=== PATIENT | female | born 1945 | race Caucasian/White ===

== ENCOUNTER → 2018-02-02 | Outpatient (CLI) | payer MEDICARE ==
[~2018-02-02] MED LIST: ACYC800 PO; ALBU90OI INH; ALBU90OI61 INH; ASCO500 PO; ASPI81EC PO; ATEN25 PO; BENADRYL25 MG PO; CHOL10002 PO; CYCL10 PO; DEXL60CA3 PO; DICL75ER PO; ENOX40I SC; FLUO20 PO; FLUSAL2505 INH; FURO20; HYDR1TAB94 PO; IBUPROFEN PM S1 EACH PO; ISOMON30 PO; LEVO750 PO; LOVA40; LOVA40 PO; MAGNESIUM CITRATE PO; MAGOXI400 PO; MELA3 PO; MULVITMIND PO; MUPI2TO TOP; Mobic15 MG PO; Mucinex600 MG PO; Norco 5-325 Ta1 EACH PO; OXYACE5T PO; Percocet 5-3251 EACH PO; Percocet 7.5-31 EACH PO; Prednisone20 MG PO; Prozac20 MG; Prozac20 MG PO; Prozac40 MG PO; QVAR7.3 G1 IH; QVAR7.3 G1 INH; SULTRIDS PO; Sucralfate1 GM PO; Ultram50 MG PO; VITAMIN D34000 UNIT PO; Verotin-Gr Cap1 EACH PO; Vitamin C100 M1 PO
[2018-02-04 16:05] LABS: Adenovirus F 40/41 Not Detected (NOT DETECT); Astrovirus Not Detected (NOT DETECT); Campylobacter Sp Not Detected (NOT DETECT); Cryptosporidium Not Detected (NOT DETECT); Cyclospora Cayetanensis Not Detected (NOT DETECT); E. Coli O157 Not Detected (NOT DETECT); Entamoeba Histolytica Not Detected (NOT DETECT); Enteroaggregative E. coli-EAEC Not Detected (NOT DETECT); Enteropathogenic E. coli-EPEC Not Detected (NOT DETECT); Enterotoxigenic E. coli-ETEC Not Detected (NOT DETECT); Giardia Lamblia Not Detected (NOT DETECT); Norovirus GI/GII Not Detected (NOT DETECT); Plesiomonas Shigelloides Not Detected (NOT DETECT); Rotavirus A Not Detected (NOT DETECT); Salmonella Sp Not Detected (NOT DETECT); Sapovirus Not Detected (NOT DETECT); Shiga Toxin-prod E. coli-STEC Not Detected (NOT DETECT); Shigella/Enteroin E. coli-EIEC Not Detected (NOT DETECT); Vibrio Cholerae Not Detected (NOT DETECT); Vibrio Sp Not Detected (NOT DETECT); Yersinia Enterocolitica Not Detected (NOT DETECT)
[2018-02-05 14:30] LABS: Stool Occult Bld Immuno 1 Negative (NEGATIVE); Stool Occult Bld Immuno 2 Negative (NEGATIVE)
== END ==
LOC: OLS 16:03 → LAB SHORT 16:03
PROVIDERS: Internal Medicine Gastroenterology
DX: K57.30 Diverticulosis of large intestine without perforation or abscess without bleeding (principal); R10.84 Generalized abdominal pain; R19.7 Diarrhea, unspecified
CPT/HCPCS: 82274; 87507

== ENCOUNTER 2018-04-13 14:43 | Inpatient (IN) | payer MEDICARE ==
[~2018-04-13] VITALS: Ht 167.6 cm; Wt 66.7 kg
[2018-04-13] MEDS ORDERED: PRED20 PO (15:13)
[2018-04-13 15:18] LABS: BASOPHILS ABSOLUTE AUTO 0.03 K/mm3 (0.00-0.23); BASOPHILS PERCENT AUTO 0 % (0-2); EOSINOPHILS ABSOLUTE AUTO 0.13 K/mm3 (0.00-0.68); EOSINOPHILS PERCENT AUTO 1 % (0-6); Hematocrit 38.5 % (33.0-51.0); Hemoglobin 12.6 g/dL (11.5-16.0); IMMATURE GRAN ABSOLUTE AUTO 0.07 K/mm3 (0.00-0.10); IMMATURE GRAN PERCENT AUTO 1 % (0-1); LYMPHOCYTES ABSOLUTE AUTO 1.68 K/mm3 (0.84-5.20); LYMPHOCYTES PERCENT AUTO 16 % (21-46); MONOCYTES ABSOLUTE AUTO 0.77 K/mm3 (0.16-1.47); MONOCYTES PERCENT AUTO 7 % (4-13); Mean Corpuscular HGB 33.2 pg (26.0-34.0); Mean Corpuscular HGB Conc 32.7 g/dL (31.5-36.5); Mean Corpuscular Volume 101 fL (80-100); Mean Platelet Volume 8.8 fL (9.1-12.4); NEUTROPHILS ABSOLUTE AUTO 8.14 K/mm3 (1.96-9.15); NEUTROPHILS PERCENT AUTO 75 % (41-73); Platelet Count 380 K/mm3 (150-400); RDW Standard Deviation 48.4 fL (35.1-46.3); White Blood Cell Count 10.82 K/mm3 (4.00-11.30)
[2018-04-13 15:33] LABS: Alanine Aminotransfer (ALT/SGP 24 U/L (12-78); Albumin, Blood 3.7 g/dL (3.4-5.0); Alk Phos 108 U/L (50-136); Anion Gap 12 mmol/L (6-16); Aspartate Aminotrans (AST/SGOT 19 U/L (12-37); Bilirubin, Total 0.3 mg/dL (0.1-1.0); Blood Urea Nitrogen 29 mg/dL (8-24); Bun/Creatinine Ratio 23.2 (12.0-20.0); CO2, Blood 21 mmol/L (21-32); Calcium, Blood 8.3 mg/dL (8.5-10.1); Chloride, Blood 104 mmol/L (98-108); Creatinine, Blood 1.25 mg/dL (0.40-1.00); Globulin, Blood 3.6 g/dL (2.2-4.0); Glomerular Filtration Rate 45 (60-); Glucose, Blood 126 mg/dL (70-99); Potassium, Blood 5.1 mmol/L (3.5-5.5); Sodium, Blood 137 mmol/L (136-145); Total Protein, Blood 7.3 g/dL (6.4-8.2); Troponin I <0.015 ng/mL (0.000-0.040)
[2018-04-13] MEDS ORDERED: Mobic7.5 MG PO (21:16)
[2018-04-14 07:42] LABS: BASOPHILS PERCENT AUTO 0 % (0-2); EOSINOPHILS PERCENT AUTO 0 % (0-6); Hematocrit 33.5 % (33.0-51.0); Hemoglobin 11.3 g/dL (11.5-16.0); IMMATURE GRAN ABSOLUTE AUTO 0.03 K/mm3 (0.00-0.10); IMMATURE GRAN PERCENT AUTO 1 % (0-1); LYMPHOCYTES ABSOLUTE AUTO 0.47 K/mm3 (0.84-5.20); LYMPHOCYTES PERCENT AUTO 7 % (21-46); MONOCYTES ABSOLUTE AUTO 0.07 K/mm3 (0.16-1.47); MONOCYTES PERCENT AUTO 1 % (4-13); Mean Corpuscular HGB 34.2 pg (26.0-34.0); Mean Corpuscular HGB Conc 33.7 g/dL (31.5-36.5); Mean Corpuscular Volume 102 fL (80-100); Mean Platelet Volume 8.7 fL (9.1-12.4); NEUTROPHILS PERCENT AUTO 91 % (41-73); Platelet Count 340 K/mm3 (150-400); RDW Coefficient Variation 13.2 % (11.7-14.2); White Blood Cell Count 6.57 K/mm3 (4.00-11.30)
[2018-04-14 07:58] LABS: Bun/Creatinine Ratio 28.7 (12.0-20.0); Calcium, Blood 8.1 mg/dL (8.5-10.1); Creatinine, Blood 1.01 mg/dL (0.40-1.00); Potassium, Blood 5.4 mmol/L (3.5-5.5)
[2018-04-15 06:10] LABS: Bun/Creatinine Ratio 29.3 (12.0-20.0); Calcium, Blood 8.1 mg/dL (8.5-10.1); Creatinine, Blood 1.16 mg/dL (0.40-1.00)
[2018-04-17 04:54] LABS: BASOPHILS ABSOLUTE AUTO 0.01 K/mm3 (0.00-0.23); BASOPHILS PERCENT AUTO 0 % (0-2); EOSINOPHILS PERCENT AUTO 0 % (0-6); Hematocrit 33.2 % (33.0-51.0); Hemoglobin 10.9 g/dL (11.5-16.0); IMMATURE GRAN ABSOLUTE AUTO 0.12 K/mm3 (0.00-0.10); IMMATURE GRAN PERCENT AUTO 1 % (0-1); LYMPHOCYTES ABSOLUTE AUTO 0.51 K/mm3 (0.84-5.20); LYMPHOCYTES PERCENT AUTO 5 % (21-46); MONOCYTES ABSOLUTE AUTO 0.46 K/mm3 (0.16-1.47); MONOCYTES PERCENT AUTO 4 % (4-13); Mean Corpuscular HGB Conc 32.8 g/dL (31.5-36.5); Mean Corpuscular Volume 101 fL (80-100); NEUTROPHILS ABSOLUTE AUTO 9.55 K/mm3 (1.96-9.15); NEUTROPHILS PERCENT AUTO 90 % (41-73); Platelet Count 375 K/mm3 (150-400); RDW Coefficient Variation 13.1 % (11.7-14.2); RDW Standard Deviation 47.9 fL (35.1-46.3); White Blood Cell Count 10.65 K/mm3 (4.00-11.30)
[2018-04-17 05:19] LABS: Albumin, Blood 3.3 g/dL (3.4-5.0); Anion Gap 8 mmol/L (6-16); Blood Urea Nitrogen 38 mg/dL (8-24); Bun/Creatinine Ratio 35.5 (12.0-20.0); CO2, Blood 24 mmol/L (21-32); Calcium, Blood 8.1 mg/dL (8.5-10.1); Chloride, Blood 105 mmol/L (98-108); Creatinine, Blood 1.07 mg/dL (0.40-1.00); Glomerular Filtration Rate 53 (60-); Glucose, Blood 118 mg/dL (70-99); Phosphorus, Blood 4.2 mg/dL (2.5-4.9); Potassium, Blood 4.9 mmol/L (3.5-5.5); Sodium, Blood 137 mmol/L (136-145)
[2018-04-17 11:04] LABS: Source, Urine Voided
[2018-04-17 11:11] LABS: Bilirubin, Urine Neg (Neg); Blood, Urine Neg (Neg); Glucose Qualitative, Urine Neg (Neg); Ketones, Urine Neg (Neg); Leukocyte Esterase, Urine Neg (Neg); Nitrite, Urine Neg (Neg); Protein, Urine 1+ (Neg); Specific Gravity, Urine 1.015 (1.003-1.022); Urobilinogen, Urine NORM (Normal)
[2018-04-17 11:19] LABS: Appearance, Urine Clear (Clear); Color, Urine Yellow (P-Yellow)
[2018-04-18] MEDS ORDERED: Calcium Carbon500 M1 PO (09:10)
[2018-04-18] MEDS ORDERED: DICL75ER PO (09:10)
[2018-04-18] MEDS ORDERED: COLACE 2-IN-11 EACH PO (09:10)
[2018-04-18] MEDS ORDERED: HYDR1TAB94 PO (09:11)
[2018-04-18] MEDS ORDERED: Flonase 0.05% N16 GM (09:11)
[2018-04-18] MEDS ORDERED: Milk Of Ma400 MG/5 M PO (09:12)
[2018-04-18] MEDS ORDERED: ALBU3IS INH (09:13)
[2018-04-18] MEDS ORDERED: DULERA 200 MCG/13 GM INH (09:13)
[2018-04-18] MEDS ORDERED: Senna8.6 MG PO (09:14)
[2018-04-18] MEDS ORDERED: PANT40 PO (09:14)
[2018-04-18] MEDS ORDERED: MELA3 PO (09:14)
[2018-04-18] MEDS ORDERED: DOCU100 PO (09:16)
== END 2018-04-18 10:16 | disposition home or self-care (01) | DRG 190 ==
LOC: ER 14:43 → ICUW 19:20 → ICUE 19:20 → MEDS 04-14 14:25 → ENPENDDIS 04-18 08:27 → MEDS 04-18 10:16
PROVIDERS: Emergency Medicine; Internal Medicine
DX: J44.1 Chronic obstructive pulmonary disease with (acute) exacerbation (principal); N17.0 Acute kidney failure with tubular necrosis; J96.01 Acute respiratory failure with hypoxia; E86.0 Dehydration; R09.1 Pleurisy; I25.10 Atherosclerotic heart disease of native coronary artery without angina pectoris; K21.9 Gastro-esophageal reflux disease without esophagitis; E78.5 Hyperlipidemia, unspecified; E78.00 Pure hypercholesterolemia, unspecified; K59.00 Constipation, unspecified; R50.9 Fever, unspecified; R53.1 Weakness; F32.9 Major depressive disorder, single episode, unspecified; F17.210 Nicotine dependence, cigarettes, uncomplicated; Z91.81 History of falling; Z95.1 Presence of aortocoronary bypass graft; Z79.52 Long term (current) use of systemic steroids; Z79.899 Other long term (current) drug therapy
CPT/HCPCS: 36415; 71046; 80048; 80053; 80069; 82947; 84484; 85025; 93005; 93010; 94640; 94644; 94760; 94761; 96361; 96365; 96375; 97116; 97162; 97530; 99285; G8978; G8979; J0456; J1650; J2930; J3010; J7050; J7120

== ENCOUNTER 2019-03-09 10:56 | Emergency (ER) | payer MEDICARE ==
[~2019-03-09] VITALS: Ht 167.6 cm; Wt 63.5 kg
[~2019-03-09 10:56] MED LIST changes: +ACETAMINOPHEN500 MG PO; +ALBU3IS INH; +COLACE 2-IN-11 EACH PO; +Calcium Carbon500 M1 PO; +DOCU100 PO; +DULERA 200 MCG/13 GM INH; +Flonase 0.05% N16 GM; +Fluocinonide15 GM TOP; +MAGNESIUM OXID400 MG PO; +Milk Of Ma400 MG/5 M PO; +PANT40 PO; +PRED20 PO; +Prednisone50 MG PO; +Senna8.6 MG PO; +Zithromax250 MG PO
[2019-03-09 12:59] LABS: BASOPHILS ABSOLUTE AUTO 0.05 K/mm3 (0.00-0.23); BASOPHILS PERCENT AUTO 1 % (0-2); EOSINOPHILS ABSOLUTE AUTO 0.24 K/mm3 (0.00-0.68); EOSINOPHILS PERCENT AUTO 4 % (0-6); Hematocrit 41.3 % (33.0-51.0); Hemoglobin 13.3 g/dL (11.5-16.0); IMMATURE GRAN ABSOLUTE AUTO 0.02 K/mm3 (0.00-0.10); IMMATURE GRAN PERCENT AUTO 0 % (0-1); LYMPHOCYTES ABSOLUTE AUTO 1.02 K/mm3 (0.84-5.20); LYMPHOCYTES PERCENT AUTO 19 % (21-46); MONOCYTES ABSOLUTE AUTO 0.57 K/mm3 (0.16-1.47); MONOCYTES PERCENT AUTO 10 % (4-13); Mean Corpuscular HGB 33.4 pg (26.0-34.0); Mean Corpuscular HGB Conc 32.2 g/dL (31.5-36.5); Mean Corpuscular Volume 104 fL (80-100); Mean Platelet Volume 9.8 fL (9.1-12.4); NEUTROPHILS ABSOLUTE AUTO 3.61 K/mm3 (1.96-9.15); NEUTROPHILS PERCENT AUTO 66 % (41-73); Platelet Count 295 K/mm3 (150-400); RDW Coefficient Variation 13.3 % (11.7-14.2); RDW Standard Deviation 51.6 fL (35.1-46.3); Red Blood Cell Count 3.98 M/mm3 (3.80-5.20); White Blood Cell Count 5.51 K/mm3 (4.00-11.30)
[2019-03-09 13:12] LABS: Alanine Aminotransfer (ALT/SGP 23 U/L (12-78); Albumin, Blood 3.5 g/dL (3.4-5.0); Albumin/Globulin Ratio 1.1 (0.8-1.8); Alk Phos 127 U/L (50-136); Anion Gap 7 mmol/L (6-16); Aspartate Aminotrans (AST/SGOT 20 U/L (12-37); Bilirubin, Total 0.4 mg/dL (0.1-1.0); Blood Urea Nitrogen 22 mg/dL (8-24); Bun/Creatinine Ratio 32.1 (12.0-20.0); CO2, Blood 21 mmol/L (21-32); Chloride, Blood 111 mmol/L (98-108); Creatinine, Blood 0.69 mg/dL (0.40-1.00); Globulin, Blood 3.2 g/dL (2.2-4.0); Glomerular Filtration Rate >60 (60-); Glucose, Blood 81 mg/dL (70-99); Sodium, Blood 139 mmol/L (136-145); Total Protein, Blood 6.7 g/dL (6.4-8.2)
[2019-03-09] MEDS ORDERED: Prednisone20 MG PO (17:22)
== END 2019-03-09 17:50 | disposition home or self-care (01) ==
LOC: ER 10:56
PROVIDERS: Physician Assistant
DX: J44.1 Chronic obstructive pulmonary disease with (acute) exacerbation (principal); M19.90 Unspecified osteoarthritis, unspecified site; F17.210 Nicotine dependence, cigarettes, uncomplicated; Z79.899 Other long term (current) drug therapy; Z88.2 Allergy status to sulfonamides
CPT/HCPCS: 36415; 71046; 80053; 83880; 84484; 85025; 93005; 93010; 94640; 96374; 99285-25; J2930

== ENCOUNTER 2019-03-13 10:51 | Observation (INO) | payer MEDICARE ==
[~2019-03-13] VITALS: Ht 167.6 cm; Wt 64.4 kg
[2019-03-13 12:06] LABS: BASOPHILS ABSOLUTE AUTO 0.01 K/mm3 (0.00-0.23); BASOPHILS PERCENT AUTO 0 % (0-2); EOSINOPHILS ABSOLUTE AUTO 0.03 K/mm3 (0.00-0.68); EOSINOPHILS PERCENT AUTO 0 % (0-6); Hematocrit 37.6 % (33.0-51.0); Hemoglobin 12.5 g/dL (11.5-16.0); IMMATURE GRAN ABSOLUTE AUTO 0.04 K/mm3 (0.00-0.10); IMMATURE GRAN PERCENT AUTO 1 % (0-1); LYMPHOCYTES ABSOLUTE AUTO 2.03 K/mm3 (0.84-5.20); LYMPHOCYTES PERCENT AUTO 25 % (21-46); MONOCYTES ABSOLUTE AUTO 0.81 K/mm3 (0.16-1.47); MONOCYTES PERCENT AUTO 10 % (4-13); Mean Corpuscular HGB 33.1 pg (26.0-34.0); Mean Corpuscular HGB Conc 33.2 g/dL (31.5-36.5); Mean Platelet Volume 9.6 fL (9.1-12.4); NEUTROPHILS ABSOLUTE AUTO 5.37 K/mm3 (1.96-9.15); NEUTROPHILS PERCENT AUTO 65 % (41-73); Platelet Count 275 K/mm3 (150-400); RDW Coefficient Variation 13.2 % (11.7-14.2); RDW Standard Deviation 47.8 fL (35.1-46.3); Red Blood Cell Count 3.78 M/mm3 (3.80-5.20); White Blood Cell Count 8.29 K/mm3 (4.00-11.30)
[2019-03-13 12:13] LABS: Alanine Aminotransfer (ALT/SGP 27 U/L (12-78); Albumin, Blood 3.4 g/dL (3.4-5.0); Albumin/Globulin Ratio 1.2 (0.8-1.8); Alk Phos 112 U/L (50-136); Anion Gap 8 mmol/L (6-16); Aspartate Aminotrans (AST/SGOT 20 U/L (12-37); Bilirubin, Total 0.4 mg/dL (0.1-1.0); Blood Urea Nitrogen 22 mg/dL (8-24); Bun/Creatinine Ratio 29.7 (12.0-20.0); CO2, Blood 23 mmol/L (21-32); Calcium, Blood 8.1 mg/dL (8.5-10.1); Chloride, Blood 109 mmol/L (98-108); Creatinine, Blood 0.74 mg/dL (0.40-1.00); Globulin, Blood 2.8 g/dL (2.2-4.0); Glomerular Filtration Rate >60 (60-); Glucose, Blood 93 mg/dL (70-99); Potassium, Blood 4.4 mmol/L (3.5-5.5); Sodium, Blood 140 mmol/L (136-145); Total Protein, Blood 6.2 g/dL (6.4-8.2); Troponin I <0.015 ng/mL (0.000-0.040)
[2019-03-13 12:15] LABS: Mean Corpuscular Volume 100 fL (80-100)
[2019-03-13] MEDS ORDERED: ALBU3IS NEB (19:35)
[2019-03-13] MEDS ORDERED: DULERA 200 MCG/13 GM INH (19:36)
[2019-03-13] MEDS ORDERED: ACYC800 PO (19:37)
[2019-03-13] MEDS ORDERED: MELATONIN5 M1 PO (19:38)
[2019-03-13] MEDS ORDERED: PRENATAL TABLE1 EAC1 PO (19:41)
[2019-03-13] MEDS ORDERED: IBUPROFEN PM S1 EACH PO (19:41)
[2019-03-13] MEDS ORDERED: DIPH50 PO (19:42)
[2019-03-13 21:53] LABS: CPK Creatine Kinase 77 U/L (26-193); Troponin I <0.015 ng/mL (0.000-0.040)
--- NOTE | 2019-03-13 23:00 | NUR ---
2300 ADMIT: PT ARRIVES TO ROOM 336 VIA GOURNEY FROM ER AND TRANSFERS SELF TO BED WITH SBA; APPEARS STEADY ON FEET. PT ON 2L O2 VIA NC AND APPEARS VISIBILY SOB WITH TIGHT LUNG SOUNDS. PT EDUCATED ABOUT FALL PRECAUTIONS, SAFETY, BED, AND CALL SYSTEM AND VERBALIZES UNDERSTANDING. PT C/O MILD LUNG PAIN AND COUGH. AWAIT RESPIRATORY THERAPY ASSESSMENT. CALL LIGHT PLACED IN REACH.
--- NOTE | 2019-03-14 00:20 | NUR ---
0020: PT MEDICATED FOR LUNG PAIN WITH GUAFINESSON COUGH SYRUP, TYLENOL, AND RESPIRATORY NEBULIZER. PT EDUCATED R/T STOOL AND SPUTUM SAMPLES NEEDING OBTAINED AND VERBALIZES UNDERSTANDING.
[2019-03-14 05:22] LABS: Hematocrit 36.8 % (33.0-51.0); Mean Corpuscular HGB 32.9 pg (26.0-34.0); Mean Corpuscular HGB Conc 32.6 g/dL (31.5-36.5); Mean Corpuscular Volume 101 fL (80-100); Mean Platelet Volume 9.5 fL (9.1-12.4); Platelet Count 233 K/mm3 (150-400); RDW Coefficient Variation 13.3 % (11.7-14.2); RDW Standard Deviation 49.4 fL (35.1-46.3); Red Blood Cell Count 3.65 M/mm3 (3.80-5.20); White Blood Cell Count 5.13 K/mm3 (4.00-11.30)
[2019-03-14 05:54] LABS: Alanine Aminotransfer (ALT/SGP 25 U/L (12-78); Albumin, Blood 3.1 g/dL (3.4-5.0); Albumin/Globulin Ratio 1.2 (0.8-1.8); Alk Phos 102 U/L (50-136); Anion Gap 10 mmol/L (6-16); Aspartate Aminotrans (AST/SGOT 16 U/L (12-37); Bilirubin, Total 0.4 mg/dL (0.1-1.0); Blood Urea Nitrogen 24 mg/dL (8-24); Bun/Creatinine Ratio 29.7 (12.0-20.0); CO2, Blood 20 mmol/L (21-32); CPK Creatine Kinase 67 U/L (26-193); Calcium, Blood 7.6 mg/dL (8.5-10.1); Chloride, Blood 112 mmol/L (98-108); Creatinine, Blood 0.81 mg/dL (0.40-1.00); Globulin, Blood 2.6 g/dL (2.2-4.0); Glomerular Filtration Rate >60 (60-); Glucose, Blood 132 mg/dL (70-99); Potassium, Blood 4.6 mmol/L (3.5-5.5); Sodium, Blood 142 mmol/L (136-145); Total Protein, Blood 5.7 g/dL (6.4-8.2); Troponin I <0.015 ng/mL (0.000-0.040)
[2019-03-14 16:24] LABS: PCO2 Arterial 28.3 mmHg (35-45); PO2 Arterial 71.7 mmHg (80-100); pH Blood Arterial 7.45 (7.35-7.45)
--- NOTE | 2019-03-14 18:41 | NUR ---
NO ACUTE CHANGES. PATIENT CO OF MEDINA, TYLENOL GIVEN AND PATIENT ENCOURAGED TO DRINK MORE WATER WHICH SHE STATED HELPED. NO OTHER ISSUES THIS SHIFT. PATIENT HAS BEEN SATING > 90 ON ROOM AIR.
[2019-03-14 22:25] LABS: Adenovirus Not Detected (NOT DETECT); Coronavirus 229E Not Detected (NOT DETECT); Coronavirus HKU1 Not Detected (NOT DETECT); Coronavirus NL63 Not Detected (NOT DETECT); Coronavirus OC43 Not Detected (NOT DETECT); Human Metapneumovirus Not Detected (NOT DETECT)
[2019-03-14 22:26] LABS: Bordetella pertussis Not Detected (NOT DETECT); Chlamydophila pneumoniae Not Detected (NOT DETECT); Human Rhinovirus/Enterovirus Not Detected (NOT DETECT); Influenza A Not Detected (NOT DETECT); Influenza A/2009-H1 Not Detected (NOT DETECT); Influenza A/H1 Not Detected (NOT DETECT); Influenza A/H3 Not Detected (NOT DETECT); Influenza B Not Detected (NOT DETECT); Mycoplasma pneumoniae Not Detected (NOT DETECT); Parainfluenza Virus 1 Not Detected (NOT DETECT); Parainfluenza Virus 2 Not Detected (NOT DETECT); Parainfluenza Virus 3 Not Detected (NOT DETECT); Parainfluenza Virus 4 Not Detected (NOT DETECT); Respiratory Syncytial Virus Not Detected (NOT DETECT)
--- NOTE | 2019-03-15 07:50 | NUR ---
03/15/19 0600 PT SATES SHE WAS UNABLE TO SLEEP LAST NIGHT EVEN WITH MELATONIN. UP MOST OF NIGHT READING A BOOK. HAD "LEG CRAMPS" THAT WERE RELIEVED BY WALKING IN ROOM. VITALS STABLE.
[2019-03-15] MEDS ORDERED: GUAIASORB DM L118 ML PO (12:30)
[2019-03-15] MEDS ORDERED: PRED20 PO (12:32)
--- NOTE | 2019-03-15 14:20 | NUR ---
DISCHARGE INSTRUCTIONS COMPLETED AND DISCUSSED WITH PT EXPRESSING UNDERSTANDING. SCRIPTS FAXED TO [facility]. HERE TO PICK PT UP. TO [facility] VIA W/C.
== END 2019-03-15 13:22 | disposition home or self-care (01) ==
LOC: ER 10:51 → MEDS 10:52
PROVIDERS: Emergency Medicine; ADMIT Internal Medicine
DX: J44.1 Chronic obstructive pulmonary disease with (acute) exacerbation (principal); J20.9 Acute bronchitis, unspecified; J44.0 Chronic obstructive pulmonary disease with (acute) lower respiratory infection; J96.01 Acute respiratory failure with hypoxia; I25.10 Atherosclerotic heart disease of native coronary artery without angina pectoris; K21.9 Gastro-esophageal reflux disease without esophagitis; F32.9 Major depressive disorder, single episode, unspecified; F17.210 Nicotine dependence, cigarettes, uncomplicated; Z95.1 Presence of aortocoronary bypass graft; Z79.899 Other long term (current) drug therapy
CPT/HCPCS: 36415; 36600; 71046; 80053; 82550; 82803; 83880; 84145; 84484; 85025; 85027; 87486; 87581; 87633; 87798; 93005; 93010; 94010; 94640; 94644; 94664; 94667; 94668; 94760; 96361; 96365; 96366; 96372; 96374; 96375; 96376; 98960; 99285-25; 99407; G0378; J1650; J1885; J1956; J2930; J7030

== ENCOUNTER 2019-05-14 17:40 | Inpatient (IN) | payer MEDICARE ==
[~2019-05-14] VITALS: Ht 167.6 cm; Wt 63.5 kg
[~2019-05-14 17:40] MED LIST changes: +DIPH50 PO; -Fluocinonide15 GM TOP; +GUAIASORB DM L118 ML PO; -MAGNESIUM OXID400 MG PO; -Prozac40 MG PO
[2019-05-14 18:31] LABS: BASOPHILS ABSOLUTE AUTO 0.05 K/mm3 (0.00-0.23); BASOPHILS PERCENT AUTO 1 % (0-2); EOSINOPHILS ABSOLUTE AUTO 0.43 K/mm3 (0.00-0.68); EOSINOPHILS PERCENT AUTO 7 % (0-6); Hematocrit 39.8 % (33.0-51.0); Hemoglobin 12.9 g/dL (11.5-16.0); IMMATURE GRAN ABSOLUTE AUTO 0.04 K/mm3 (0.00-0.10); IMMATURE GRAN PERCENT AUTO 1 % (0-1); LYMPHOCYTES ABSOLUTE AUTO 1.85 K/mm3 (0.84-5.20); LYMPHOCYTES PERCENT AUTO 28 % (21-46); MONOCYTES ABSOLUTE AUTO 0.57 K/mm3 (0.16-1.47); MONOCYTES PERCENT AUTO 9 % (4-13); Mean Corpuscular HGB 33.3 pg (26.0-34.0); Mean Corpuscular HGB Conc 32.4 g/dL (31.5-36.5); Mean Corpuscular Volume 103 fL (80-100); Mean Platelet Volume 8.8 fL (9.1-12.4); NEUTROPHILS ABSOLUTE AUTO 3.64 K/mm3 (1.96-9.15); NEUTROPHILS PERCENT AUTO 55 % (41-73); Platelet Count 317 K/mm3 (150-400); RDW Coefficient Variation 13.6 % (11.7-14.2); RDW Standard Deviation 52.2 fL (35.1-46.3); Red Blood Cell Count 3.87 M/mm3 (3.80-5.20); White Blood Cell Count 6.58 K/mm3 (4.00-11.30)
[2019-05-14 18:49] LABS: Alanine Aminotransfer (ALT/SGP 18 U/L (12-78); Albumin, Blood 3.4 g/dL (3.4-5.0); Albumin/Globulin Ratio 1.1 (0.8-1.8); Alk Phos 111 U/L (50-136); Anion Gap 6 mmol/L (6-16); Aspartate Aminotrans (AST/SGOT 14 U/L (12-37); Bilirubin, Total 0.2 mg/dL (0.1-1.0); Blood Urea Nitrogen 18 mg/dL (8-24); Bun/Creatinine Ratio 23.1 (12.0-20.0); CO2, Blood 24 mmol/L (21-32); Calcium, Blood 8.2 mg/dL (8.5-10.1); Chloride, Blood 110 mmol/L (98-108); Creatinine, Blood 0.78 mg/dL (0.40-1.00); Glomerular Filtration Rate >60 (60-); Glucose, Blood 115 mg/dL (70-99); Potassium, Blood 4.1 mmol/L (3.5-5.5); Sodium, Blood 140 mmol/L (136-145); Total Protein, Blood 6.4 g/dL (6.4-8.2)
[2019-05-15 04:07] LABS: BASOPHILS ABSOLUTE AUTO 0.01 K/mm3 (0.00-0.23); BASOPHILS PERCENT AUTO 0 % (0-2); EOSINOPHILS PERCENT AUTO 0 % (0-6); Hematocrit 37.4 % (33.0-51.0); IMMATURE GRAN ABSOLUTE AUTO 0.02 K/mm3 (0.00-0.10); IMMATURE GRAN PERCENT AUTO 1 % (0-1); LYMPHOCYTES ABSOLUTE AUTO 0.35 K/mm3 (0.84-5.20); LYMPHOCYTES PERCENT AUTO 9 % (21-46); MONOCYTES ABSOLUTE AUTO 0.03 K/mm3 (0.16-1.47); MONOCYTES PERCENT AUTO 1 % (4-13); Mean Corpuscular HGB 33.3 pg (26.0-34.0); Mean Corpuscular HGB Conc 32.1 g/dL (31.5-36.5); Mean Corpuscular Volume 104 fL (80-100); Mean Platelet Volume 9.1 fL (9.1-12.4); NEUTROPHILS ABSOLUTE AUTO 3.68 K/mm3 (1.96-9.15); NEUTROPHILS PERCENT AUTO 90 % (41-73); Platelet Count 283 K/mm3 (150-400); RDW Coefficient Variation 13.4 % (11.7-14.2); RDW Standard Deviation 51.6 fL (35.1-46.3); White Blood Cell Count 4.09 K/mm3 (4.00-11.30)
--- NOTE | 2019-05-15 05:47 | NUR ---
SUMMARY PT ADMITTED THIS SHIFT FOR EXACERBATION OF COPD. RECEIVING NEB TREATMENTS AND SOLUMEDROL IV. CONT WHEEZIG, BUT REPORTS BREATHING DOES SEEM TO IMPROVE AFTER TX PLAN.AMBULATORY WITH SBA. PT NOW HAS BSC DUE TO SOB WHILE AMBULATING FOR BRP.
--- NOTE | 2019-05-15 16:33 | NUR ---
SHIFT SUMMARY NO ACUTE CHANGES THIS SHIFT. PT DOING BETTER. WEANED FROM 3.5L O2 VIA NC TO RA. PT DOES PUT 1L NC BACK ON AFTER EXERTION SHE GETS SOB. LUNGS ARE WHEEZY T/O AND RT WORKING WITH PT. PT HAS A NONPRODUCTIVE COUGH. CONT TO RECEIVE SOLUMEDROL AND ORAL ZITHROMAX STARTED TODAY PER DR. ART. IVF INFUSING PER ORDERS. PT UP WITH SBA TO THE RESTROOM. TELE IN NSR PER NURSES SUPERVISOR. SNEHAL REG DIET. USES CALL LIGHT APPRORIATELY.
[2019-05-16 04:53] LABS: BASOPHILS ABSOLUTE AUTO 0.01 K/mm3 (0.00-0.23); BASOPHILS PERCENT AUTO 0 % (0-2); EOSINOPHILS PERCENT AUTO 0 % (0-6); Hematocrit 33.9 % (33.0-51.0); Hemoglobin 11.2 g/dL (11.5-16.0); IMMATURE GRAN ABSOLUTE AUTO 0.08 K/mm3 (0.00-0.10); IMMATURE GRAN PERCENT AUTO 1 % (0-1); LYMPHOCYTES ABSOLUTE AUTO 0.53 K/mm3 (0.84-5.20); LYMPHOCYTES PERCENT AUTO 5 % (21-46); MONOCYTES ABSOLUTE AUTO 0.28 K/mm3 (0.16-1.47); MONOCYTES PERCENT AUTO 2 % (4-13); Mean Corpuscular HGB 34.7 pg (26.0-34.0); Mean Corpuscular Volume 105 fL (80-100); Mean Platelet Volume 9.2 fL (9.1-12.4); NEUTROPHILS ABSOLUTE AUTO 10.56 K/mm3 (1.96-9.15); NEUTROPHILS PERCENT AUTO 92 % (41-73); Platelet Count 268 K/mm3 (150-400); RDW Coefficient Variation 13.5 % (11.7-14.2); RDW Standard Deviation 52.9 fL (35.1-46.3); Red Blood Cell Count 3.23 M/mm3 (3.80-5.20); White Blood Cell Count 11.46 K/mm3 (4.00-11.30)
[2019-05-16 05:30] LABS: Anion Gap 5 mmol/L (6-16); Blood Urea Nitrogen 20 mg/dL (8-24); Bun/Creatinine Ratio 23.6 (12.0-20.0); CO2, Blood 25 mmol/L (21-32); Calcium, Blood 7.8 mg/dL (8.5-10.1); Chloride, Blood 111 mmol/L (98-108); Creatinine, Blood 0.85 mg/dL (0.40-1.00); Glomerular Filtration Rate >60 (60-); Glucose, Blood 125 mg/dL (70-99); Potassium, Blood 4.9 mmol/L (3.5-5.5); Sodium, Blood 141 mmol/L (136-145)
--- NOTE | 2019-05-16 16:28 | NUR ---
SHIFT SUMMARY VSS. NO ACUTE CHANGES TODAY. PT TOLERATING ROOM AIR AT 92% AND ONLY WEARS 1L O2 VIA NC FOR COMFORT PRN. STILL SOB WITH EXERTION. WHEEZY T/O LUNGS--WORKING WITH RT. NON PRODUCTIVE COUGH. TYLENOL FOR PAIN PRN AND COUGH MEDICINE PRN. UP WITH SBA TO RESTROOM. TELE DC'D TODAY. IV IS SL. SNEHAL CARDIAC DIET. POSSIBLE DC TOMORROW. USES CALL LIGHT APPROPRIATELY.
[2019-05-17 04:15] LABS: BASOPHILS ABSOLUTE AUTO 0.01 K/mm3 (0.00-0.23); BASOPHILS PERCENT AUTO 0 % (0-2); EOSINOPHILS PERCENT AUTO 0 % (0-6); Hematocrit 34.1 % (33.0-51.0); Hemoglobin 10.9 g/dL (11.5-16.0); IMMATURE GRAN ABSOLUTE AUTO 0.08 K/mm3 (0.00-0.10); IMMATURE GRAN PERCENT AUTO 1 % (0-1); LYMPHOCYTES ABSOLUTE AUTO 1.25 K/mm3 (0.84-5.20); LYMPHOCYTES PERCENT AUTO 11 % (21-46); MONOCYTES ABSOLUTE AUTO 0.68 K/mm3 (0.16-1.47); MONOCYTES PERCENT AUTO 6 % (4-13); Mean Corpuscular HGB 33.6 pg (26.0-34.0); Mean Corpuscular Volume 105 fL (80-100); Mean Platelet Volume 9.4 fL (9.1-12.4); NEUTROPHILS ABSOLUTE AUTO 9.17 K/mm3 (1.96-9.15); NEUTROPHILS PERCENT AUTO 82 % (41-73); Platelet Count 266 K/mm3 (150-400); RDW Coefficient Variation 13.5 % (11.7-14.2); RDW Standard Deviation 53.1 fL (35.1-46.3); Red Blood Cell Count 3.24 M/mm3 (3.80-5.20); White Blood Cell Count 11.19 K/mm3 (4.00-11.30)
[2019-05-17 04:34] LABS: Anion Gap 5 mmol/L (6-16); Blood Urea Nitrogen 22 mg/dL (8-24); Bun/Creatinine Ratio 25.5 (12.0-20.0); CO2, Blood 25 mmol/L (21-32); Calcium, Blood 7.7 mg/dL (8.5-10.1); Chloride, Blood 109 mmol/L (98-108); Creatinine, Blood 0.86 mg/dL (0.40-1.00); Glomerular Filtration Rate >60 (60-); Glucose, Blood 106 mg/dL (70-99); Potassium, Blood 4.9 mmol/L (3.5-5.5); Sodium, Blood 139 mmol/L (136-145)
--- NOTE | 2019-05-17 07:22 | NUR ---
SUMMARY: COPD EXACERBATION ADMIT ON DR. ART SERVICE. VSS, AFEBRILE, MAINTAINS SPO2 >92% ON ROOM AIR. LUNG SOUNDS TIGHT BUT WITHOUT WHEEZE, OCCASIONAL COARSE COUGH WITH SCANT THICK YELLOW SPUTUM PRODUCTION. PT ON ROOM AIR ALL SHIFT, MILD SOB WITH EXERTION AND RECOVERS QUICKLY. ANTICIPATE POSSIBLE DC HOME LATER THIS DAY.
[2019-05-17] MEDS ORDERED: Prednisone10 MG (10:17)
[2019-05-17] MEDS ORDERED: Zithromax250 MG PO (10:21)
--- NOTE | 2019-05-17 11:08 | NUR ---
DISCHARGE: PT SEEN BY DR. ART AND DISCHARGE ORDERS ENTERED. DISCHARGE INSTRUCTIONS GIVEN TO PT AND PT . [facility]. PT VERBALIZED UNDERSTANDING OF INSTRUCTIONS. IV DC'D AND PT LEFT UNIT WITH BRANDYN MARQUEZ VIA WHEELCHAIR. TO BLOCK HACKER IN CAR.
== END 2019-05-17 11:11 | disposition home or self-care (01) | DRG 189 ==
LOC: ER 17:40 → SURS 21:13
PROVIDERS: Emergency Medicine; Hospitalist; ADMIT Internal Medicine
DX: J96.01 Acute respiratory failure with hypoxia (principal); J44.1 Chronic obstructive pulmonary disease with (acute) exacerbation; I25.10 Atherosclerotic heart disease of native coronary artery without angina pectoris; F32.9 Major depressive disorder, single episode, unspecified; E78.5 Hyperlipidemia, unspecified; G47.00 Insomnia, unspecified; F17.210 Nicotine dependence, cigarettes, uncomplicated; Z95.1 Presence of aortocoronary bypass graft; Z79.52 Long term (current) use of systemic steroids; Z79.899 Other long term (current) drug therapy; Z88.2 Allergy status to sulfonamides
CPT/HCPCS: 36415; 71046; 80048; 80053; 85025; 93005; 93010; 94640; 94760; 96374; 98960; 99285-25; A9270; J1650; J2920; J2930; J7030

== ENCOUNTER 2019-06-24 13:51 | Observation (INO) | payer MEDICARE ==
[~2019-06-24] VITALS: Ht 167.6 cm; Wt 70.0 kg
[~2019-06-24 13:51] MED LIST changes: +Prednisone10 MG
[2019-06-24 14:25] LABS: BASOPHILS ABSOLUTE AUTO 0.05 K/mm3 (0.00-0.23); BASOPHILS PERCENT AUTO 1 % (0-2); EOSINOPHILS ABSOLUTE AUTO 0.38 K/mm3 (0.00-0.68); EOSINOPHILS PERCENT AUTO 5 % (0-6); Hematocrit 38.8 % (33.0-51.0); Hemoglobin 12.8 g/dL (11.5-16.0); IMMATURE GRAN ABSOLUTE AUTO 0.02 K/mm3 (0.00-0.10); IMMATURE GRAN PERCENT AUTO 0 % (0-1); LYMPHOCYTES ABSOLUTE AUTO 1.26 K/mm3 (0.84-5.20); LYMPHOCYTES PERCENT AUTO 17 % (21-46); MONOCYTES ABSOLUTE AUTO 0.61 K/mm3 (0.16-1.47); MONOCYTES PERCENT AUTO 8 % (4-13); Mean Corpuscular Volume 103 fL (80-100); Mean Platelet Volume 9.3 fL (9.1-12.4); NEUTROPHILS ABSOLUTE AUTO 5.09 K/mm3 (1.96-9.15); NEUTROPHILS PERCENT AUTO 69 % (41-73); Platelet Count 260 K/mm3 (150-400); RDW Coefficient Variation 12.6 % (11.7-14.2); RDW Standard Deviation 47.8 fL (35.1-46.3); Red Blood Cell Count 3.77 M/mm3 (3.80-5.20); White Blood Cell Count 7.41 K/mm3 (4.00-11.30)
[2019-06-24 14:47] LABS: Alanine Aminotransfer (ALT/SGP 17 U/L (12-78); Albumin, Blood 3.2 g/dL (3.4-5.0); Albumin/Globulin Ratio 1.1 (0.8-1.8); Alk Phos 110 U/L (50-136); Anion Gap 9 mmol/L (6-16); Aspartate Aminotrans (AST/SGOT 14 U/L (12-37); Bilirubin, Total 0.3 mg/dL (0.1-1.0); Blood Urea Nitrogen 21 mg/dL (8-24); Bun/Creatinine Ratio 26.9 (12.0-20.0); CO2, Blood 22 mmol/L (21-32); Calcium, Blood 8.2 mg/dL (8.5-10.1); Chloride, Blood 113 mmol/L (98-108); Creatinine, Blood 0.78 mg/dL (0.40-1.00); Glomerular Filtration Rate >60 (60-); Glucose, Blood 121 mg/dL (70-99); Potassium, Blood 4.5 mmol/L (3.5-5.5); Sodium, Blood 144 mmol/L (136-145); Total Protein, Blood 6.2 g/dL (6.4-8.2); Troponin I <0.015 ng/mL (0.000-0.040)
[2019-06-24] MEDS ORDERED: Mobic15 MG PO (17:22)
[2019-06-24] MEDS ORDERED: Prozac40 MG PO (17:22)
[2019-06-24] MEDS ORDERED: LOVA40 PO (17:22)
[2019-06-24] MEDS ORDERED: ALBU90OI INH (17:22)
[2019-06-24] MEDS ORDERED: MAGNESIUM OXID400 MG PO (17:23)
[2019-06-24] MEDS ORDERED: Fluocinonide15 GM TOP (17:23)
[2019-06-24] MEDS ORDERED: ALBU3IS NEB (17:24)
[2019-06-24] MEDS ORDERED: DULERA 200 MCG/13 GM INH (17:24)
[2019-06-24] MEDS ORDERED: MELATONIN5 M1 PO (17:24)
[2019-06-24] MEDS ORDERED: IBUPROFEN PM S1 EACH PO (17:25)
[2019-06-24] MEDS ORDERED: PRENATAL DHA200 MG PO (17:26)
[2019-06-24] MEDS ORDERED: Allergy Medicat25 MG PO (17:26)
[2019-06-24] MEDS ORDERED: C-1000 WITH R1000 MG PO (17:27)
[2019-06-24] MEDS ORDERED: Vitamin D2000 UNIT PO (17:27)
[2019-06-24] MEDS ORDERED: Zovirax400 MG PO (17:28)
[2019-06-24] MEDS ORDERED: HYDHOMSY PO (17:29)
--- NOTE | 2019-06-24 18:28 | NUR ---
Telephone report was received from JOVI Perez. Anticipate pt arrival to PCU 5 after she gets a chest xray, 2 view, I am told.
--- NOTE | 2019-06-24 19:11 | NUR ---
Received the patient from the ED at approx 1845. She is alert, oriented, pleasantly conversant and cheerful. Carrying on conversation with occasional breaths mid-sentence, spo2 86-87% while talking with oxygen delivery of 2 l/min via nasal cannula. Lung sounds auscultated: Expiratory wheezing without crackles, and occasional non productive hoarse, moist-sounding cough. States she does not normally wear any oxgyen, and that she is quitting smoking through the [facility] COPD program, making good progress. States she is very motivated to quit entirely. Bedside report was given to To Johnson RN.
[2019-06-25 00:38] LABS: Hematocrit 36.8 % (33.0-51.0); Hemoglobin 12.1 g/dL (11.5-16.0); Mean Corpuscular HGB 33.8 pg (26.0-34.0); Mean Corpuscular HGB Conc 32.9 g/dL (31.5-36.5); Mean Corpuscular Volume 103 fL (80-100); Mean Platelet Volume 9.1 fL (9.1-12.4); Platelet Count 248 K/mm3 (150-400); RDW Coefficient Variation 12.4 % (11.7-14.2); RDW Standard Deviation 47.2 fL (35.1-46.3); Red Blood Cell Count 3.58 M/mm3 (3.80-5.20); White Blood Cell Count 5.34 K/mm3 (4.00-11.30)
[2019-06-25 00:57] LABS: Anion Gap 8 mmol/L (6-16); Blood Urea Nitrogen 25 mg/dL (8-24); Bun/Creatinine Ratio 32.4 (12.0-20.0); CO2, Blood 23 mmol/L (21-32); Calcium, Blood 8.1 mg/dL (8.5-10.1); Chloride, Blood 109 mmol/L (98-108); Creatinine, Blood 0.77 mg/dL (0.40-1.00); Glomerular Filtration Rate >60 (60-); Glucose, Blood 187 mg/dL (70-99); Potassium, Blood 4.6 mmol/L (3.5-5.5); Sodium, Blood 140 mmol/L (136-145); Troponin I <0.015 ng/mL (0.000-0.040)
--- NOTE | 2019-06-25 06:05 | NUR ---
END OF SHIFT SUMMARY PT HAS BEEN ALERT AND ORIENTED T/O SHIFT. CAN BE VERY FORGETFUL AT TIMES DESPITE PATIENT DENYING ISSUES WITH MEMORY. ADMISSION PACKET COMPLETED. BEGINNING OF SHIFT, LUNGS EXPIRATORY WHEEZES T/O AND PATIENT VERY DYSPNEIC WITH LITTLE EXERTION. NOW, WHEEZES HAVE DECREASED AND PT RECOVERING QUICKER FROM STANDING AND GOING TO BATHRROM. PT STATES LESS WORK OF BREATHING. PT DOES HAVE SOME ANXIETY WITH RESPIRATORY STATUS. PT HAS BEEN TITRATED FROM 2LNC TO 4.5LNC PT FELT 2L HAS NOPT BEEN ENOUGH. PT HAS BEEN RESTING FOR MAJORITY OF SHIFT. USES CALL LIGHT APPROPRIATELY. CALL LIGHT WITHIN REACH. WILL CONTINUE TO MONITOR PT UNTIL SHIFT CHANGE.
--- NOTE | 2019-06-25 07:21 | NUR ---
ASSUMED CARE: PT RESTING IN BED, 4L O2 VIA NC. TALKING TO STAFF, NO ACUTE DISTRESS OR CONCERNS NOTED
--- NOTE | 2019-06-25 09:58 | NUR ---
DR AWARE THAT PT IS CURRENTLY ON 4L O2 WHEN SHE DOESN'T WEAR AT HOME. DR REQUESTS TITRATION AND IF DOWN TO 2L OR LESS THEN HOME O2 EVAL
--- NOTE | 2019-06-25 10:53 | NUR ---
PT'S O2 TITRATED DOWN TO RA, SATTING 97%. CALL TO DR WOLFF WHO STATES HE WILL WRITE FOR DC ORDERS BUT SHE NEEDS TO HAVE A HOME O2 EVAL DONE FIRST. RESPIRATORY THERAPY AWARE
[2019-06-25] MEDS ORDERED: AZIT500 PO (12:14)
[2019-06-25] MEDS ORDERED: TESSALON PERLE100 MG PO (12:15)
[2019-06-25] MEDS ORDERED: Dulcolax5 MG PO (12:16)
[2019-06-25] MEDS ORDERED: FAMO20 PO (12:19)
[2019-06-25] MEDS ORDERED: ROBITUSSIN COU237 ML PO (12:19)
[2019-06-25] MEDS ORDERED: AIRDUO RESPICL1 EAC2 INH (12:21)
[2019-06-25] MEDS ORDERED: GUAI600T33 PO (12:21)
[2019-06-25] MEDS ORDERED: Mobic15 MG PO (12:22)
[2019-06-25] MEDS ORDERED: Nicoderm Cq1 EAC1 TOP (12:23)
[2019-06-25] MEDS ORDERED: ONDA4ODT MM (12:23)
[2019-06-25] MEDS ORDERED: Senokotxtra17.2 MG PO (12:24)
[2019-06-25] MEDS ORDERED: Culturelle1 CAP PO (12:24)
[2019-06-25] MEDS ORDERED: PRENATAL TABLE1 EAC2 PO (12:24)
[2019-06-25] MEDS ORDERED: Prednisone10 MG PO (12:26)
--- NOTE | 2019-06-25 13:49 | NUR ---
ANESTHESIOLOGIST AND CRITICAL CARE DISCUSSED DC INSTRUCTIONS AND REMOVED IV'S FROM PT. PT ESCORTED OUT VIA WHEEL CHAIR AND DID NOT REQUIRE O2 AFTER HOME O2 EVAL
== END 2019-06-25 13:52 | disposition home or self-care (01) ==
LOC: ER 13:51 → PCU 13:52 → ER 18:10 → PCU 18:10
PROVIDERS: Emergency Medicine; ADMIT Family Medicine
DX: J44.1 Chronic obstructive pulmonary disease with (acute) exacerbation (principal); J96.21 Acute and chronic respiratory failure with hypoxia; I25.10 Atherosclerotic heart disease of native coronary artery without angina pectoris; F32.9 Major depressive disorder, single episode, unspecified; F17.210 Nicotine dependence, cigarettes, uncomplicated; Z95.1 Presence of aortocoronary bypass graft; Z88.2 Allergy status to sulfonamides; Z79.899 Other long term (current) drug therapy
CPT/HCPCS: 36415; 71045; 71046; 80048; 80053; 84484; 85025; 85027; 93005; 93010; 94640; 94644; 94760; 94761; 94762; 96372; 96374; 96375; 96376; 99285-25; A9270; A9270-GY; G0378; J0456; J0696; J1650; J2930; J7050

== ENCOUNTER 2019-09-04 06:57 | Inpatient (IN) | payer MEDICARE ==
[~2019-09-04] VITALS: Ht 167.6 cm; Wt 68.7 kg
[~2019-09-04 06:57] MED LIST changes: +AIRDUO RESPICL1 EAC2 INH; +ALBU3IS NEB; +AZIT500 PO; +Allergy Medicat25 MG PO; +C-1000 WITH R1000 MG PO; +Culturelle1 CAP PO; +Dulcolax5 MG PO; +FAMO20 PO; +Fluocinonide15 GM TOP; +GUAI600T33 PO; +HYDHOMSY PO; +MAGNESIUM OXID400 MG PO; +MELATONIN5 M1 PO; +Nicoderm Cq1 EAC1 TOP; +ONDA4ODT MM; +PRENATAL DHA200 MG PO; +PRENATAL TABLE1 EAC2 PO; +Prednisone10 MG PO; +Prozac40 MG PO; +ROBITUSSIN COU237 ML PO; +Senokotxtra17.2 MG PO; +TESSALON PERLE100 MG PO; +Vitamin D2000 UNIT PO; +Zovirax400 MG PO
[2019-09-04 07:19] LABS: BASOPHILS ABSOLUTE AUTO 0.08 K/mm3 (0.00-0.23); BASOPHILS PERCENT AUTO 1 % (0-2); EOSINOPHILS ABSOLUTE AUTO 0.95 K/mm3 (0.00-0.68); EOSINOPHILS PERCENT AUTO 12 % (0-6); Hematocrit 42.7 % (33.0-51.0); Hemoglobin 13.7 g/dL (11.5-16.0); IMMATURE GRAN ABSOLUTE AUTO 0.02 K/mm3 (0.00-0.10); IMMATURE GRAN PERCENT AUTO 0 % (0-1); LYMPHOCYTES ABSOLUTE AUTO 2.36 K/mm3 (0.84-5.20); LYMPHOCYTES PERCENT AUTO 29 % (21-46); MONOCYTES ABSOLUTE AUTO 0.73 K/mm3 (0.16-1.47); MONOCYTES PERCENT AUTO 9 % (4-13); Mean Corpuscular HGB 32.7 pg (26.0-34.0); Mean Corpuscular HGB Conc 32.1 g/dL (31.5-36.5); Mean Corpuscular Volume 102 fL (80-100); Mean Platelet Volume 9.1 fL (9.1-12.4); NEUTROPHILS PERCENT AUTO 49 % (41-73); Platelet Count 301 K/mm3 (150-400); RDW Coefficient Variation 13.2 % (11.7-14.2); RDW Standard Deviation 49.9 fL (35.1-46.3); Red Blood Cell Count 4.19 M/mm3 (3.80-5.20); White Blood Cell Count 8.14 K/mm3 (4.00-11.30)
[2019-09-04 07:32] LABS: Alanine Aminotransfer (ALT/SGP 20 U/L (12-78); Albumin, Blood 3.3 g/dL (3.4-5.0); Alk Phos 149 U/L (50-136); Anion Gap 6 mmol/L (6-16); Aspartate Aminotrans (AST/SGOT 21 U/L (12-37); Bilirubin, Total 0.3 mg/dL (0.1-1.0); Blood Urea Nitrogen 17 mg/dL (8-24); Bun/Creatinine Ratio 21.1 (12.0-20.0); CO2, Blood 27 mmol/L (21-32); Calcium, Blood 8.3 mg/dL (8.5-10.1); Chloride, Blood 110 mmol/L (98-108); Creatinine, Blood 0.81 mg/dL (0.40-1.00); Globulin, Blood 3.3 g/dL (2.2-4.0); Glomerular Filtration Rate >60 (60-); Glucose, Blood 128 mg/dL (70-99); Potassium, Blood 4.6 mmol/L (3.5-5.5); Sodium, Blood 143 mmol/L (136-145); Total Protein, Blood 6.6 g/dL (6.4-8.2); Troponin I 0.032 ng/mL (0.000-0.040)
[2019-09-04] MEDS ORDERED: BENZ100A PO (07:32)
[2019-09-04] MEDS ORDERED: BUDE6HFA (07:40)
[2019-09-04] MEDS ORDERED: SYMBICORT INH (07:41)
[2019-09-04] MEDS ORDERED: HYDHOMSY PO (07:42)
[2019-09-04] MEDS ORDERED: DONE5 PO (07:42)
[2019-09-04] MEDS ORDERED: COMBIVENT RESPIM4 GM (07:43)
[2019-09-04] MEDS ORDERED: VITAMIN D3 (07:44)
[2019-09-04] MEDS ORDERED: MELATONIN5 M1 PO (07:44)
[2019-09-04] MEDS ORDERED: ASCO500 PO (07:45)
[2019-09-04 07:51] LABS: Base Excess Venous 1.3 mmol/L; Bicarbonate Venous 24.5 mmol/L (24.0-30.0); PCO2 Venous 45.3 mmHg (38-42); PO2 Venous 40.9 mmHg (38-42); pH Blood Venous 7.38 (7.34-7.37)
--- NOTE | 2019-09-04 11:15 | NUR ---
PATIENT ARRIVED TO ROOM 344 VIA GURNEY FROM ED. REPORTS RECEIVED FROM JOVI OBANDO. PATIENT IS A/OX4, CAN BE FOREGETFUL AT TIMES PER REPORT. AT BEDSIDE. PATIENT ABLE TO TRANSFER TO BE WITH 1 ASSIST. VSS, ON 4LO2 VIA ID. PATIENT WITH WHEEZES THROUGHOUT. REPORTS 6/10 PAIN IN HEAD AND RIBS WITH COUGHING. DENIES ANY NAUSEA OR ABDOMINAL. 20G IV TO L FA WNL AND SL. SKIN INTACT. ORIENTED TO ROOM AND USE OF CALL LIGHT. BED ALARM SET FOR SAFETY.
--- NOTE | 2019-09-05 06:02 | NUR ---
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 PT has been smoking 2 or 3 cigarettes daily and her roommate smokes. Cessation encouraged and PT verbalized understanding on effect on heart and lungs of tobacco use. On IV steroids Q 8 hours and oxygen 2 l nc. PT had audible wheezes at beginning of shift improved after neb and she has been able to sleep. Melatonin and benadryl helpful for insommnia. Asks for assist approp. to use BSC. Unable to ambulate to bathroom due to dyspnea with exertion. PT has been active and involved in Family and encouraged to stop smoking so she can continue to enjoy life. 93% on 2 l nc. HX of 3 way cardiac bypass 2002.
--- NOTE | 2019-09-05 17:10 | NUR ---
SHIFT SUMMARY PATIENT CURRENTLY RESTING IN BED COMFORTABLY. SHE HAS SLEPT THIS AFTERNOON. MEDICATED FOR ANXIETY. MEDICATED FOR PAIN. VISITORS IN THROUGHOUT THE SHIFT. CONTINUES TO NEED O2. VERY SOB WITH AMBULATION.
--- NOTE | 2019-09-05 18:48 | NUR ---
Spiritual Care inital note: I met with Mrs. Zhang and her niece at bedside. Pt is a delightful woman, smiles easily and telling little jokes. She alowed me to pray at bedside. Her niece was present and appears quite loving/devoted. Pt states she is grateful for the "bluntness" of physician as "this is what I needed to finally quit smoking." I proveded education on the purpose and benefits of advanced care planning. Niece was appreciative of information and strongly encouraged pt to complete forms. Mrs. Zhang verbalizes understanding that her disease is progressive. But she beleives, now that she has stopped smoking, she will havea lot more quality time. Pt appears well-loved and supportive by family. I will remain available.
--- NOTE | 2019-09-06 05:11 | NUR ---
PT continues on oxygen for COPD with acute hypoxia. She is short of breath with exertion and feels weak and deconditioned despite steroids IV Q 8 hrs. No home oxygen use concerned about possible DC too soon. She is not on home oxygen and has been a smoker only smoking afew cigarettes and she acknowledges the risk of even 1 smoke. Hx of CABG PT says she was given a new life 13 years ago with procedure. She has chronic restless legs with cramps that she takes magnesium to prevent. Takes 30 mg melatonin per her report for insommnia and wide awake after 15 mg at HS. PO benadryl helpful for restful sleep. Ultram and tylenol provide good pain relief of rib chest and LE pain pain. Verbalized plan to completely avoid exposure to tobacco smoke. Nonsmoking Spouse.
--- NOTE | 2019-09-06 17:16 | NUR ---
SHIFT SUMMARY PATIENT HAS HAD 2 EPISODES OF SHORTNESS OF BREATHE AFTER WAKING FROM A NAP. REQUIRING BREATHING TREATMENTS AND PAIN MEDICATIONS. VERY FEARFUL OF RETURNING HOME IN THIS STATE.
--- NOTE | 2019-09-07 04:11 | NUR ---
SHIFT SUMMARY A/O, ABLE TO MAKE NEEDS KNOWN. COOPERATIVE WITH CARE. CALLS AND ANSWERS QUESTIONS APPROPRIATELY. C/O HEADACHE; MEDICATED PER EMAR. REQUESTED SOMETHING FOR SLEEP; MEDICATED PER EMAR. APPEARED TO REST WELL AFTER AFFECT. STATED ANXIETY R/T BREATHING; MEDICATED PER EMAR. REMAINS @ 3L VIA NC; NO O2 @ BASELINE. RT INVOLVED IN CARE; BT ORDERED. UP WITH 1P ASSIST TO BATHROOM; DYSPNEIC UPON EXERTION. NO ACUTE CHANGES NOTED OVERNIGHT. BED IN LOWEST POSITION. CALL LIGHT AND BELONGINGS WITHIN REACH. WCTM. REPORT TO ONCOMING RN.
--- NOTE | 2019-09-07 15:07 | NUR ---
pt visiting with family and increased coughing. advance directive information left will return to review with patient.
--- NOTE | 2019-09-07 17:11 | NUR ---
Spiritual Care routine visit: Connie was alone in room. She smiles easily and was quite talkative about her family. she is very proud of her children and grandkids. she admits to feeling fearful about going home, and tells me she is grateful "they decided to keep me another day." Prayer for healing provided. Visit ended when I was called to ED. Print [employer] will remain available.
--- NOTE | 2019-09-07 17:52 | NUR ---
PT TITRATED DOWN TO RA, SATS 91-92% WITH AMBULATION. PT AMBULATED IN HALLWAY, TOLERATED WELL. PER DR FRANCO PT SHOULD BE ABLE TO DISCHARGE HOME TOMORROW. NO ACUTE CHANGES NOTED THIS SHIFT. WILL CONTINUE TO MONITOR AND REPORT TO ONCOMING RN.
--- NOTE | 2019-09-07 19:37 | NUR ---
PT MOVED FROM RM 344 TO RM 363. PT MOSTLY ORIENTED, DOES HAVE A HISTORY OF DEMENTIA WITH SHOWING SIGNS OF SUNDOWNING AT THIS TIME. RECEIVED REPORT FROM JOVI GALDAMEZ. ALL OF PT'S PERSONAL BELONGINGS PLACED IN RM 363. WILL CONTINUE TO MONITOR AND PROVIDE CARE T/O SHIFT. CALL LT IN REACH.
--- NOTE | 2019-09-07 19:59 | NUR ---
HAND-OFF REPORT 1904 HAND-OFF REPORT GIVEN TO JOVI GAMEZ. PATIENT RECIEVED ATIVAN PRIOR TO MOVE TO [facility]; PER PATIENT REQUEST.
--- NOTE | 2019-09-07 20:57 | NUR ---
PT STATES SHE'S DOING MUCH BETTER WITH BREATHING AND HER COUGH. STATES HER HEADACHE IS MUCH BETTER. PT AT THIS TIME IS SITTING UP IN BED PLAYING GAMES ON HER NOTEBOOK. CALL LT IN REACH.
--- NOTE | 2019-09-07 21:37 | NUR ---
PT STATES HER HEADACHE IS GONE, HOWEVER, PT STILL ANXIOUS. PT HAS HAD HER BEDTIME DOSE OF PO ATIVAN WHICH HAS HELPED SOME BUT PT STILL SOMEWHAT ANXIOUS. WILL GIVE MELATONIN AFTER PT GETS READY FOR BED AND WILL MONITOR.
--- NOTE | 2019-09-07 22:25 | NUR ---
PT LYING IN BED READING A BOOK. RESP EVEN ON RA. NO DISTRESS NOTED. CALL LT IN REACH.
--- NOTE | 2019-09-08 00:04 | NUR ---
PT RECEIVING BREATHING TREATMENT AT THIS TIME.
--- NOTE | 2019-09-08 01:56 | NUR ---
PT REPORTS FEELING VERY ANXIOUS, NOTED PT'S HANDS APPEAR TO BE MORE SHAKIER. PT STATES SHE NEEDS SOMETHING TO CALM HER DOWN AND HELP HER TO SLEEP. PT HAD RECEIVED 0.5MG ATIVAN PO AT BEGINNING OF NIGHTSHIFT FOR ANXIOUSNESS, HOWEVER NO PRN DOSES. CALLED HOSPITALIST AND RECEIVED AN ORDER FOR 1MG ATIVAN PO X ONE. GAVE PT ORDERED DOSE OF ATIVAN AND LEFT BATHROOM LIGHT ON FOR COMFORT. PT REPORTS SHE WAS GOING TO TRY AND GO TO SLEEP. WILL MONITOR. CALL LT IN REACH.
--- NOTE | 2019-09-08 03:41 | NUR ---
PT RESTING QUIETLY.
--- NOTE | 2019-09-08 05:13 | NUR ---
PT CONTINUES TO REST QUIETLY. CALL LT IN REACH.
--- NOTE | 2019-09-08 05:13 | NUR ---
SHIFT SUMMARY: PT MOVED FROM RM 344 TO RM 363. HAD SEVERAL EPISODES OF HIGH ANXIETY AND SOB. PT GIVEN PO ATIVAN TO HELP ANXIETY WHICH ENABLED PT TO REST WELL. INDEPENDENT IN RM. ON RA. TWO SCHEDULED BREATHING TREATMENTS GIVEN WHICH PT REPORTED HELPED WITH HER BREATHING. NO PRN BREATHING TREATMENTS CALLED FOR. PT DOES HAVE HISTORY OF DEMENTIA WITH SOME SUNDOWNING OCCURING DURING SHIFT. PT HAS TALKED THAT SHE WOULD LIKE TO GO HOME. WILL CONTINUE TO MONITOR AND PROVIDE CARE UNTIL SHIFT REPORT TO ONCOMING NURSE.
--- NOTE | 2019-09-08 06:27 | NUR ---
PT CONTINUES TO REST QUIETLY.
--- NOTE | 2019-09-08 10:31 | NUR ---
PATIENT ADVOCATE WAS NOTIFIED ABOUT THE INCIDENT THAT HAPPENED LAST NIGHT. I DID NOTIFY THE CHARGE NURSE, THE PATIENT ADVOCATE AND DESTRI THE CLINICAL COORDINATOR. NO ACUTE CONCERNS AT THIS TIME AND I HAVE CONTINUED TO CHECK IN WITH THE PATIENT.
[2019-09-08] MEDS ORDERED: LORA.5 PO (11:05)
[2019-09-08] MEDS ORDERED: AZIT250 PO (11:05)
[2019-09-08] MEDS ORDERED: Prednisone10 MG PO (11:07)
--- NOTE | 2019-09-08 12:51 | NUR ---
DISCHARGE SUMMARY PATIENT IV REMOVED. PATIENT HAS SPOKEN WITH THE CHARGE NURSE, PATIENTS NURSE, PATIENT ADVOCATE TO SETTLE THE SITUATION FROM LAST NIGHT. ALL DISCHARGE INFORMATION WAS GIVEN TO THE PATIENT PRIOR TO DISCHARGE. MY NAME WAS LEFT ON THE DISCHARGE PAPERWORK AND I EXPRESSED THAT I WOULD SPEAK WITH THEM TOMORROW IF THEY NEEDED ANYMORE HELP OR CONCERNS.
== END 2019-09-08 12:25 | disposition home or self-care (01) | DRG 189 ==
LOC: ER 06:57 → MEDS 06:58
PROVIDERS: Emergency Medicine; ADMIT Hospitalist
DX: J96.01 Acute respiratory failure with hypoxia (principal); J44.1 Chronic obstructive pulmonary disease with (acute) exacerbation; I25.10 Atherosclerotic heart disease of native coronary artery without angina pectoris; F17.210 Nicotine dependence, cigarettes, uncomplicated; G30.8 Other Alzheimer's disease; F02.80 Dementia in other diseases classified elsewhere, unspecified severity, without behavioral disturbance, psychotic disturbance, mood disturbance, and anxiety; F41.9 Anxiety disorder, unspecified; F32.9 Major depressive disorder, single episode, unspecified; M19.90 Unspecified osteoarthritis, unspecified site; Z95.1 Presence of aortocoronary bypass graft; Z79.1 Long term (current) use of non-steroidal anti-inflammatories (NSAID); Z79.899 Other long term (current) drug therapy
CPT/HCPCS: 36415; 71045; 80053; 82803; 84484; 85025; 90686; 93005; 93010; 94640; 94660; 94664; 94667; 94760; 96361; 96372; 96374; 96375; 96376; 98960; 99285-25; 99407; A9270; G0008; G0378; J1650; J2060; J2920; J2930; J7030; Q0163

== ENCOUNTER → 2019-11-06 | Outpatient (CLI) | payer MEDICARE ==
[~2019-11-06] MED LIST changes: +AZIT250 PO; +BENZ100A PO; +BUDE6HFA; +COMBIVENT RESPIM4 GM; +DONE5 PO; +LORA.5 PO; +SYMBICORT INH; +VITAMIN D3
== END | disposition home or self-care (01) ==
LOC: LAB 19:27 → LAB SHORT 19:27
DX: N39.0 Urinary tract infection, site not specified (principal)
CPT/HCPCS: 87086

== ENCOUNTER → 2019-11-21 | Outpatient (CLI) | payer MEDICARE | END | disposition home or self-care (01) | LOC: LAB SHORT 15:08 → LAB 15:08 | DX: N39.0 Urinary tract infection, site not specified (principal) | CPT/HCPCS: 87077; 87086; 87186 ==

== ENCOUNTER → 2020-08-12 | Outpatient (CLI) | payer MEDICARE | END | disposition home or self-care (01) | LOC: LAB SHORT 07:55 → PLD 07:55 | DX: L57.8 Other skin changes due to chronic exposure to nonionizing radiation (principal) | CPT/HCPCS: 88305; 88312; 88313 ==

== ENCOUNTER 2020-10-26 11:49 | Emergency (ER) | payer MEDICARE ==
[~2020-10-26] VITALS: Ht 167.6 cm; Wt 68.0 kg
[2020-10-26 12:29] LABS: BASOPHILS ABSOLUTE AUTO 0.05 K/mm3 (0.00-0.23); BASOPHILS PERCENT AUTO 1 % (0-2); EOSINOPHILS ABSOLUTE AUTO 0.32 K/mm3 (0.00-0.68); EOSINOPHILS PERCENT AUTO 5 % (0-6); Hematocrit 39.4 % (33.0-51.0); Hemoglobin 12.7 g/dL (11.5-16.0); IMMATURE GRAN ABSOLUTE AUTO 0.01 K/mm3 (0.00-0.10); IMMATURE GRAN PERCENT AUTO 0 % (0-1); LYMPHOCYTES ABSOLUTE AUTO 1.85 K/mm3 (0.84-5.20); LYMPHOCYTES PERCENT AUTO 30 % (21-46); MONOCYTES ABSOLUTE AUTO 0.65 K/mm3 (0.16-1.47); MONOCYTES PERCENT AUTO 11 % (4-13); Mean Corpuscular HGB 32.4 pg (26.0-34.0); Mean Corpuscular HGB Conc 32.2 g/dL (31.5-36.5); Mean Corpuscular Volume 101 fL (80-100); NEUTROPHILS ABSOLUTE AUTO 3.31 K/mm3 (1.96-9.15); NEUTROPHILS PERCENT AUTO 53 % (41-73); Platelet Count 273 K/mm3 (150-400); RDW Coefficient Variation 12.6 % (11.7-14.2); RDW Standard Deviation 47.4 fL (35.1-46.3); Red Blood Cell Count 3.92 M/mm3 (3.80-5.20); White Blood Cell Count 6.19 K/mm3 (4.00-11.30)
[2020-10-26 12:47] LABS: Alanine Aminotransfer (ALT/SGP 13 U/L (12-78); Albumin, Blood 3.1 g/dL (3.4-5.0); Alk Phos 121 U/L (50-136); Anion Gap 6 mmol/L (6-16); Aspartate Aminotrans (AST/SGOT 15 U/L (12-37); Bilirubin, Total 0.4 mg/dL (0.1-1.0); Blood Urea Nitrogen 18 mg/dL (8-24); Bun/Creatinine Ratio 21.6 (12.0-20.0); CO2, Blood 25 mmol/L (21-32); Calcium, Blood 8.3 mg/dL (8.5-10.1); Chloride, Blood 111 mmol/L (98-108); Creatinine, Blood 0.83 mg/dL (0.40-1.00); Glomerular Filtration Rate >60 (60-); Glucose, Blood 99 mg/dL (70-99); Potassium, Blood 4.4 mmol/L (3.5-5.5); Sodium, Blood 142 mmol/L (136-145); Total Protein, Blood 6.1 g/dL (6.4-8.2); Troponin I <0.015 ng/mL (0.000-0.040)
[2020-10-26] MEDS ORDERED: MELO7.5 PO (13:14)
[2020-10-26] MEDS ORDERED: ONDA4ODT (13:15)
[2020-10-26] MEDS ORDERED: TRAM50 PO (13:16)
[2020-10-26] MEDS ORDERED: ACYC800 (13:16)
[2020-10-26 13:25] LABS: Influenza A, PCR Negative (NEGATIVE); Influenza B, PCR Negative (NEGATIVE); Resp Syncytial Virus, PCR Negative (NEGATIVE); SARS-Cov-2 (COVID-19) PCR, MMC Negative (NEGATIVE)
[2020-10-26] MEDS ORDERED: METPRE4DP PO (13:37)
== END 2020-10-26 14:55 | disposition home or self-care (01) ==
LOC: ER 11:49
PROVIDERS: Emergency Medicine
DX: J44.1 Chronic obstructive pulmonary disease with (acute) exacerbation (principal); Z20.828 Contact with and (suspected) exposure to other viral communicable diseases; Z95.1 Presence of aortocoronary bypass graft; Z79.52 Long term (current) use of systemic steroids; Z79.899 Other long term (current) drug therapy
CPT/HCPCS: 0241U; 36415; 71045; 80053; 83880; 84484; 85025; 93005; 93010; 94640; 99285-25

== ENCOUNTER 2021-03-27 15:12 | Emergency (ER) | payer MEDICARE ==
[~2021-03-27] VITALS: Ht 167.6 cm; Wt 68.0 kg
[~2021-03-27 15:12] MED LIST changes: +ACYC800; +MELO7.5 PO; +METPRE4DP PO; +ONDA4ODT; +TRAM50 PO
[2021-03-27] MEDS ORDERED: LOVA40 PO (15:28)
[2021-03-27] MEDS ORDERED: Prozac40 MG PO (15:29)
[2021-03-27] MEDS ORDERED: MELO7.5 PO (15:29)
[2021-03-27] MEDS ORDERED: TESSALON PERLE100 MG PO (15:29)
[2021-03-27] MEDS ORDERED: ONDA4ODT MM (15:30)
[2021-03-27] MEDS ORDERED: LORA.5 PO (15:30)
[2021-03-27] MEDS ORDERED: HYDR1TAB94 PO (18:19)
== END 2021-03-27 19:05 | disposition home or self-care (01) ==
LOC: ER 15:12
DX: S52.502A Unspecified fracture of the lower end of left radius, initial encounter for closed fracture (principal); S52.602A Unspecified fracture of lower end of left ulna, initial encounter for closed fracture; J44.9 Chronic obstructive pulmonary disease, unspecified; Z79.899 Other long term (current) drug therapy; W01.0XXA Fall on same level from slipping, tripping and stumbling without subsequent striking against object, initial encounter
CPT/HCPCS: 25605; 73060; 73090; 73100; 73110; 96374-59; 99152; 99284-25; A9270; J2270; J2704; J7030

== ENCOUNTER 2021-04-07 11:23 | Day surgery (SDC) | payer MEDICARE ==
[~2021-04-07] VITALS: Ht 170.2 cm; Wt 67.7 kg
[2021-04-07] MEDS ORDERED: PSEUDOEPHEDRINE30 M1 (11:56)
[2021-04-07] MEDS ORDERED: TRIDERM28.4 GM (11:58)
[2021-04-07] MEDS ORDERED: ALBU2.5V5 (11:59)
[2021-04-07] MEDS ORDERED: IPRAT-ALBUT 0.5-3 ML (12:00)
[2021-04-07] MEDS ORDERED: FLUT1DIS8 (12:00)
[2021-04-07] MEDS ORDERED: ANORO ELLIPTA1 EACH (12:00)
--- NOTE | 2021-04-07 13:22 | NUR ---
04/07/21 1322 [address] Silvestre SKIN TEAR ON TOP OF LEFT WRIST. DR MORA NOTIFIED. PT PREPPED & STERILE TEGADERM PLACED OVER SKIN TEAR PER DR. MORA.
--- NOTE | 2021-04-07 15:02 | NUR ---
04/07/21 1354 Miya Castro RECEIVED REPORT AND INFORMATION ON PATIENT. PATIENT IN RECLINER WITH LEFT WRIST ELEVATED AND ICE PACK IN PLACE. PATIENT REPEATEDLY STATES SHE IS IN TERRIBLE PAIN AND TELLS ME SHE "CAN'T HANDLE PAIN" AND SHE IS DRINKING JUICE AND ACTING VERY JOVIAL. I EXPLAIN TO HER THAT WE WILL NOT BE ABLE TO TAKE ALL HER PAIN AWAY THAT WE ARE TRYING TO GET THE PAIN TO A TOLERABLE LEVEL SHE EXPRESSES UNDERSTANDING AND THEN AGAIN TELLS ME HOW BAD HER PAIN IS. WILL CONTINUE TO MONITOR AND WORK WITH THIS SITUATION. IS AT CHAIR SIDE AND INVOLVED IN ALL CONVERSATIONS
== END 2021-04-07 15:59 | disposition home or self-care (01) ==
LOC: ORSCSDS 11:23
PROVIDERS: Orthopaedic Surgery
PROC: 0PSJ04Z Reposition Left Radius with Internal Fixation Device, Open Approach (ICD-10-PCS; principal; 2021-04-07 12:30)
DX: S52.502A Unspecified fracture of the lower end of left radius, initial encounter for closed fracture (principal); I10 Essential (primary) hypertension; J44.9 Chronic obstructive pulmonary disease, unspecified; F17.210 Nicotine dependence, cigarettes, uncomplicated; Z79.899 Other long term (current) drug therapy
CPT/HCPCS: A9270; C1713; J0690; J1100; J2405; J2704; J3010; J7120

== ENCOUNTER 2021-06-05 19:30 | Emergency (ER) | payer MEDICARE ==
[~2021-06-05] VITALS: Ht 170.2 cm; Wt 68.0 kg
[~2021-06-05 19:30] MED LIST changes: +ALBU2.5V5; +ANORO ELLIPTA1 EACH; +FLUT1DIS8; +IPRAT-ALBUT 0.5-3 ML; +PSEUDOEPHEDRINE30 M1; +TRIDERM28.4 GM
[2021-06-05 20:16] LABS: Source, Urine Clean Catch
[2021-06-05 20:22] LABS: Appearance, Urine Hazy (Clear); Blood, Urine 2+ (Neg); Color, Urine Yellow (P-Yellow); Glucose Qualitative, Urine Neg (Neg); Ketones, Urine Neg (Neg); Leukocyte Esterase, Urine 3+ (Neg); Nitrite, Urine Neg (Neg); Protein, Urine 2+ (Neg); Specific Gravity, Urine 1.025 (1.003-1.022); Urobilinogen, Urine NORM (Normal)
[2021-06-05 20:29] LABS: Bilirubin, Urine 1+ (Neg)
[2021-06-05 20:32] LABS: White Blood Cells, Urine TNTC /hpf (0-5)
[2021-06-05 20:33] LABS: Bacteria Mod /hpf; Red Blood Cells, Urine 0-2 /hpf (0-2); Squamous Epithelial Cells Few /hpf (Few)
[2021-06-05 21:44] LABS: BASOPHILS ABSOLUTE AUTO 0.06 K/mm3 (0.00-0.23); BASOPHILS PERCENT AUTO 1 % (0-2); EOSINOPHILS PERCENT AUTO 12 % (0-6); Hematocrit 31.9 % (33.0-51.0); Hemoglobin 10.2 g/dL (11.5-16.0); IMMATURE GRAN ABSOLUTE AUTO 0.02 K/mm3 (0.00-0.10); IMMATURE GRAN PERCENT AUTO 0 % (0-1); LYMPHOCYTES ABSOLUTE AUTO 1.19 K/mm3 (0.84-5.20); LYMPHOCYTES PERCENT AUTO 18 % (21-46); MONOCYTES ABSOLUTE AUTO 0.69 K/mm3 (0.16-1.47); MONOCYTES PERCENT AUTO 11 % (4-13); Mean Corpuscular HGB 33.3 pg (26.0-34.0); Mean Corpuscular Volume 104 fL (80-100); Mean Platelet Volume 9.4 fL (9.1-12.4); NEUTROPHILS ABSOLUTE AUTO 3.74 K/mm3 (1.96-9.15); NEUTROPHILS PERCENT AUTO 58 % (41-73); Platelet Count 377 K/mm3 (150-400); RDW Coefficient Variation 14.2 % (11.7-14.2); RDW Standard Deviation 54.6 fL (35.1-46.3); Red Blood Cell Count 3.06 M/mm3 (3.80-5.20)
[2021-06-05 22:05] LABS: Alanine Aminotransfer (ALT/SGP 16 U/L (12-78); Albumin, Blood 2.9 g/dL (3.4-5.0); Albumin/Globulin Ratio 0.9 (0.8-1.8); Alk Phos 106 U/L (50-136); Anion Gap 9 mmol/L (6-16); Aspartate Aminotrans (AST/SGOT 15 U/L (12-37); Bilirubin, Total 0.2 mg/dL (0.1-1.0); Blood Urea Nitrogen 26 mg/dL (8-24); Bun/Creatinine Ratio 22.8 (12.0-20.0); CO2, Blood 21 mmol/L (21-32); Calcium, Blood 8.2 mg/dL (8.5-10.1); Chloride, Blood 112 mmol/L (98-108); Creatinine, Blood 1.14 mg/dL (0.40-1.00); Globulin, Blood 3.3 g/dL (2.2-4.0); Glomerular Filtration Rate 46 (60-); Glucose, Blood 111 mg/dL (70-99); Potassium, Blood 4.2 mmol/L (3.5-5.5); Sodium, Blood 142 mmol/L (136-145); Total Protein, Blood 6.2 g/dL (6.4-8.2); Troponin I <0.015 ng/mL (0.000-0.040)
[2021-06-05] MEDS ORDERED: CEFP200 PO (23:23)
== END 2021-06-05 23:33 | disposition home or self-care (01) ==
LOC: ER 19:30
PROVIDERS: Physician Assistant
DX: N39.0 Urinary tract infection, site not specified (principal); F17.210 Nicotine dependence, cigarettes, uncomplicated; Z95.1 Presence of aortocoronary bypass graft; Z96.642 Presence of left artificial hip joint
CPT/HCPCS: 36415; 71045; 80053; 81001; 83880; 84443; 84484; 85025; 87086; 93005; 93010; 96365; 99284-25; J0696; J7030

== ENCOUNTER 2021-09-05 17:19 | Emergency (ER) | payer MEDICARE ==
[~2021-09-05] VITALS: Ht 167.6 cm; Wt 68.0 kg
[~2021-09-05 17:19] MED LIST changes: +CEFP200 PO
[2021-09-05 17:55] LABS: BASOPHILS ABSOLUTE AUTO 0.02 K/mm3 (0.00-0.23); BASOPHILS PERCENT AUTO 0 % (0-2); EOSINOPHILS ABSOLUTE AUTO 0.01 K/mm3 (0.00-0.68); EOSINOPHILS PERCENT AUTO 0 % (0-6); Hematocrit 37.9 % (33.0-51.0); Hemoglobin 12.1 g/dL (11.5-16.0); IMMATURE GRAN ABSOLUTE AUTO 0.04 K/mm3 (0.00-0.10); IMMATURE GRAN PERCENT AUTO 0 % (0-1); LYMPHOCYTES ABSOLUTE AUTO 0.66 K/mm3 (0.84-5.20); LYMPHOCYTES PERCENT AUTO 7 % (21-46); MONOCYTES ABSOLUTE AUTO 0.34 K/mm3 (0.16-1.47); MONOCYTES PERCENT AUTO 4 % (4-13); Mean Corpuscular HGB 30.5 pg (26.0-34.0); Mean Corpuscular HGB Conc 31.9 g/dL (31.5-36.5); Mean Corpuscular Volume 96 fL (80-100); Mean Platelet Volume 9.9 fL (9.1-12.4); NEUTROPHILS ABSOLUTE AUTO 8.16 K/mm3 (1.96-9.15); NEUTROPHILS PERCENT AUTO 88 % (41-73); Platelet Count 279 K/mm3 (150-400); RDW Coefficient Variation 14.6 % (11.7-14.2); Red Blood Cell Count 3.97 M/mm3 (3.80-5.20); White Blood Cell Count 9.23 K/mm3 (4.00-11.30)
[2021-09-05 18:12] LABS: Alanine Aminotransfer (ALT/SGP 21 U/L (12-78); Albumin/Globulin Ratio 0.9 (0.8-1.8); Alk Phos 99 U/L (50-136); Anion Gap 6 mmol/L (6-16); Aspartate Aminotrans (AST/SGOT 15 U/L (12-37); Bilirubin, Total 0.2 mg/dL (0.1-1.0); Blood Urea Nitrogen 26 mg/dL (8-24); Bun/Creatinine Ratio 29.5 (12.0-20.0); CO2, Blood 25 mmol/L (21-32); Calcium, Blood 7.8 mg/dL (8.5-10.1); Chloride, Blood 111 mmol/L (98-108); Creatinine, Blood 0.88 mg/dL (0.40-1.00); Globulin, Blood 3.3 g/dL (2.2-4.0); Glomerular Filtration Rate >60 (60-); Glucose, Blood 99 mg/dL (70-99); Potassium, Blood 4.5 mmol/L (3.5-5.5); Sodium, Blood 142 mmol/L (136-145); Total Protein, Blood 6.3 g/dL (6.4-8.2); Troponin I <0.015 ng/mL (0.000-0.040)
== END 2021-09-05 20:17 | disposition home or self-care (01) ==
LOC: ER 17:19
PROVIDERS: Emergency Medicine
DX: R06.00 Dyspnea, unspecified (principal); R11.2 Nausea with vomiting, unspecified; J44.9 Chronic obstructive pulmonary disease, unspecified; Z79.899 Other long term (current) drug therapy; Z87.891 Personal history of nicotine dependence
CPT/HCPCS: 71045; 80053; 83880; 84484; 85025; 93005; 93010; 99284-25; A9270

== ENCOUNTER 2021-10-10 15:31 | Inpatient (IN) | payer MEDICARE ==
[~2021-10-10] VITALS: Ht 167.6 cm; Wt 68.0 kg
[2021-10-10] MEDS ORDERED: Brovana15 MCG/2 M INH (16:01)
[2021-10-10] MEDS ORDERED: BUDESONIDE0.5 MG/2 M INH (16:01)
[2021-10-10] MEDS ORDERED: PRED20 PO (16:02)
[2021-10-10] MEDS ORDERED: DILTIAZEM 24HR300 MG PO (16:03)
[2021-10-10] MEDS ORDERED: BENZ100A PO (16:04)
[2021-10-10 16:11] LABS: BASOPHILS ABSOLUTE AUTO 0.01 K/mm3 (0.00-0.23); BASOPHILS PERCENT AUTO 0 % (0-2); EOSINOPHILS ABSOLUTE AUTO 0.14 K/mm3 (0.00-0.68); EOSINOPHILS PERCENT AUTO 2 % (0-6); Hematocrit 36.6 % (33.0-51.0); Hemoglobin 11.8 g/dL (11.5-16.0); IMMATURE GRAN ABSOLUTE AUTO 0.03 K/mm3 (0.00-0.10); IMMATURE GRAN PERCENT AUTO 0 % (0-1); LYMPHOCYTES ABSOLUTE AUTO 0.64 K/mm3 (0.84-5.20); LYMPHOCYTES PERCENT AUTO 9 % (21-46); MONOCYTES ABSOLUTE AUTO 0.21 K/mm3 (0.16-1.47); MONOCYTES PERCENT AUTO 3 % (4-13); Mean Corpuscular HGB 30.7 pg (26.0-34.0); Mean Corpuscular HGB Conc 32.2 g/dL (31.5-36.5); Mean Corpuscular Volume 95 fL (80-100); Mean Platelet Volume 9.3 fL (9.1-12.4); NEUTROPHILS ABSOLUTE AUTO 6.23 K/mm3 (1.96-9.15); NEUTROPHILS PERCENT AUTO 86 % (41-73); Platelet Count 324 K/mm3 (150-400); RDW Coefficient Variation 16.9 % (11.7-14.2); RDW Standard Deviation 59.1 fL (35.1-46.3); Red Blood Cell Count 3.84 M/mm3 (3.80-5.20); White Blood Cell Count 7.26 K/mm3 (4.00-11.30)
[2021-10-10 16:37] LABS: Alanine Aminotransfer (ALT/SGP 21 U/L (12-78); Albumin, Blood 3.1 g/dL (3.4-5.0); Albumin/Globulin Ratio 0.9 (0.8-1.8); Alk Phos 105 U/L (50-136); Anion Gap 8 mmol/L (6-16); Aspartate Aminotrans (AST/SGOT 15 U/L (12-37); Bilirubin, Total 0.2 mg/dL (0.1-1.0); Blood Urea Nitrogen 24 mg/dL (8-24); Bun/Creatinine Ratio 32.2 (12.0-20.0); CO2, Blood 21 mmol/L (21-32); Calcium, Blood 8.6 mg/dL (8.5-10.1); Chloride, Blood 112 mmol/L (98-108); Creatinine, Blood 0.75 mg/dL (0.40-1.00); Globulin, Blood 3.3 g/dL (2.2-4.0); Glomerular Filtration Rate >60 (60-); Glucose, Blood 135 mg/dL (70-99); Potassium, Blood 5.1 mmol/L (3.5-5.5); Sodium, Blood 141 mmol/L (136-145); Total Protein, Blood 6.4 g/dL (6.4-8.2); Troponin I <0.015 ng/mL (0.000-0.040)
[2021-10-10] MEDS ORDERED: MELATONIN5 M1 PO (17:00)
[2021-10-10] MEDS ORDERED: BENADRYL25 MG PO (17:00)
[2021-10-10] MEDS ORDERED: IBUP200 PO (17:00)
--- NOTE | 2021-10-11 04:28 | NUR ---
SHIFT SUMMARY PT RECEIVED FROM THE ER LAST NIGHT AT 22:48, ADMITTED FOR COPD EXACERBATION.DNR CODE STATUS.PT IS AWAKE AND ALERT X4.PT VERY PLESANT AND COOPERATIVE ,STILL SOB AT TIMES ,RECEIVED NEBULIZER TX .BED IN LOWER POSITION AND CALL LIGHT IN REACH. PT IS ON 2L NC ,RESTING COMFORTABLY, NO SIGH OF DISTTRESS OBSERVED .ALL NEEDS WERE ADDRESSED .WILL CONTINUE TO MONITOR.
[2021-10-11 05:56] LABS: BASOPHILS PERCENT AUTO 0 % (0-2); EOSINOPHILS PERCENT AUTO 0 % (0-6); Hematocrit 33.9 % (33.0-51.0); Hemoglobin 10.8 g/dL (11.5-16.0); IMMATURE GRAN ABSOLUTE AUTO 0.03 K/mm3 (0.00-0.10); IMMATURE GRAN PERCENT AUTO 1 % (0-1); LYMPHOCYTES ABSOLUTE AUTO 0.41 K/mm3 (0.84-5.20); LYMPHOCYTES PERCENT AUTO 7 % (21-46); MONOCYTES ABSOLUTE AUTO 0.05 K/mm3 (0.16-1.47); MONOCYTES PERCENT AUTO 1 % (4-13); Mean Corpuscular HGB 30.3 pg (26.0-34.0); Mean Corpuscular HGB Conc 31.9 g/dL (31.5-36.5); Mean Corpuscular Volume 95 fL (80-100); Mean Platelet Volume 9.5 fL (9.1-12.4); NEUTROPHILS ABSOLUTE AUTO 5.08 K/mm3 (1.96-9.15); NEUTROPHILS PERCENT AUTO 91 % (41-73); Platelet Count 301 K/mm3 (150-400); RDW Standard Deviation 60.1 fL (35.1-46.3); Red Blood Cell Count 3.56 M/mm3 (3.80-5.20); White Blood Cell Count 5.57 K/mm3 (4.00-11.30)
[2021-10-11 06:32] LABS: Alanine Aminotransfer (ALT/SGP 20 U/L (12-78); Alk Phos 95 U/L (50-136); Anion Gap 9 mmol/L (6-16); Aspartate Aminotrans (AST/SGOT 10 U/L (12-37); Bilirubin, Total 0.3 mg/dL (0.1-1.0); Blood Urea Nitrogen 32 mg/dL (8-24); Bun/Creatinine Ratio 35.7 (12.0-20.0); CO2, Blood 22 mmol/L (21-32); Calcium, Blood 8.4 mg/dL (8.5-10.1); Chloride, Blood 111 mmol/L (98-108); Globulin, Blood 2.9 g/dL (2.2-4.0); Glomerular Filtration Rate >60 (60-); Glucose, Blood 157 mg/dL (70-99); Potassium, Blood 4.6 mmol/L (3.5-5.5); Sodium, Blood 142 mmol/L (136-145); Total Protein, Blood 5.9 g/dL (6.4-8.2)
[2021-10-11 17:18] LABS: Base Excess Venous -2.2 mmol/L; PCO2 Venous 33.6 mmHg (38-42); PO2 Venous 107 mmHg (38-42); pH Blood Venous 7.43 (7.34-7.37)
--- NOTE | 2021-10-11 18:20 | NUR ---
SHIFT SUMMARY PATIENT AAOX3 BUT HAS BECOME CONFUSED ON AND OFF THROUGHOUT THE DAY AND HAD TO REORIENT OR ANSWER SAME QUESTIONS MULTIPLE TIMES. UNABLE TO TOLEARTE AMBULATING TO THE RESTROOM WITHOUT BECOMING EXTREMELY SOB AND WHEZZING. HAD TO RETURN TO BED AND HELP CALM DOWN. GET BREATHING TREATMENTS ABOUT EVERY 2-3 HOURS ON TODAY. CALLED DR AND GOT HOME ANXIETY AND COUGH MEDS RESUMED. INCREASED DOSE OF SOULUMEDROL DOSE AND O2 AT 4L BNC. STILL COMPLAINING OF PRESSURE AND SOB. DR CAME TO FLOOR TO OBSERVE PATIENT AND EVALUATE AND NO NEW ORDERS GIVEN. EXPLAINED TO THE PATIENT TO RELAX AND TAKE SLOW DEEP BREATHES. NEW IV STARTED IN RIGHT AC. FAMILY AT BEDSIDE AND EATING DINNER AT THIS TIME. WILL CONTINUE TO MONITOR IN CARE.
--- NOTE | 2021-10-12 04:12 | NUR ---
SHIFT SUMMARY PT SEEMS TO BE CONFUSED AT TIMES THIS SHIFT. PT STILL VERY SOB AND WHEEZEES, HAD TO USE CPAP MACHINE FOR A FEW.PT HAS BEEN VERY ANXIOUS WHICH HAS AFFECTED HER BREATHING.PT IS RESTING NOW IN BED ON 2L NC. NO SIGN OF DISTRESS NOTED AT THIS TIME. WILL CONTINUE TO MONITOR
--- NOTE | 2021-10-12 17:26 | NUR ---
SHIFT SUMMARY PT IS AAOX4, ABLE TO MAKE NEEDS KNOWN, PLEASANT AND COOPERATIVE TO CARE. PT MEDICATED FOR PAIN PER EMAR. PT DENIES CP OR N/V. PT REPORTS SOB WITH MINIMAL EXERTION, PT REMAINS ON O2 AT 2LPM VIA NC, ON CONT BIOX SATTING 92-95% PT RECEIVING TX FROM RESP THERAPY ORDERED. PT WORKED WITH PT THIS SHIFT. PT REQUIRES 1P SBA TO BSC OR CHAIR. GOOD BED MOBILITY. BED AT LOWEST POSITION. CALL LIGHT WITHIN REACH.
[2021-10-13 05:34] LABS: BASOPHILS ABSOLUTE AUTO 0.01 K/mm3 (0.00-0.23); BASOPHILS PERCENT AUTO 0 % (0-2); EOSINOPHILS PERCENT AUTO 0 % (0-6); Hematocrit 34.9 % (33.0-51.0); Hemoglobin 11.2 g/dL (11.5-16.0); IMMATURE GRAN ABSOLUTE AUTO 0.04 K/mm3 (0.00-0.10); IMMATURE GRAN PERCENT AUTO 1 % (0-1); LYMPHOCYTES ABSOLUTE AUTO 0.38 K/mm3 (0.84-5.20); LYMPHOCYTES PERCENT AUTO 6 % (21-46); MONOCYTES PERCENT AUTO 4 % (4-13); Mean Corpuscular HGB 30.8 pg (26.0-34.0); Mean Corpuscular HGB Conc 32.1 g/dL (31.5-36.5); Mean Corpuscular Volume 96 fL (80-100); Mean Platelet Volume 9.6 fL (9.1-12.4); NEUTROPHILS ABSOLUTE AUTO 6.22 K/mm3 (1.96-9.15); NEUTROPHILS PERCENT AUTO 90 % (41-73); Platelet Count 306 K/mm3 (150-400); RDW Coefficient Variation 16.8 % (11.7-14.2); RDW Standard Deviation 59.7 fL (35.1-46.3); Red Blood Cell Count 3.64 M/mm3 (3.80-5.20); White Blood Cell Count 6.95 K/mm3 (4.00-11.30)
--- NOTE | 2021-10-13 06:00 | NUR ---
PT HAS SLEPT FOR MOST OF THE NIGHT, ORIENTED X4, AND USES CALL LIGHT APPROPRIATELY. PT HAS AUDIBLE INS/EXP WHEEZE, DESATS WHEN UP TO CAMODE WITH SOB, ON 2L NC. Q4 BREATHING TREATMENTS COMPLETE. NO OTHER CHANGES TO REPORT. WILL CONT TO MONITOR.
[2021-10-13 06:14] LABS: Anion Gap 6 mmol/L (6-16); Blood Urea Nitrogen 29 mg/dL (8-24); Bun/Creatinine Ratio 34.7 (12.0-20.0); CO2, Blood 27 mmol/L (21-32); Calcium, Blood 8.1 mg/dL (8.5-10.1); Chloride, Blood 108 mmol/L (98-108); Creatinine, Blood 0.84 mg/dL (0.40-1.00); Glomerular Filtration Rate >60 (60-); Glucose, Blood 146 mg/dL (70-99); Potassium, Blood 4.9 mmol/L (3.5-5.5); Sodium, Blood 141 mmol/L (136-145)
[2021-10-13 10:17] LABS: Base Excess Venous -1.1 mmol/L; Bicarbonate Venous 23.6 mmol/L (24.0-30.0); PCO2 Venous 37.7 mmHg (38-42); PO2 Venous 73.4 mmHg (38-42); pH Blood Venous 7.41 (7.34-7.37)
[2021-10-13] MEDS ORDERED: ANORO ELLIPTA1 EACH INH (17:20)
[2021-10-13] MEDS ORDERED: PRED20 PO (17:20)
[2021-10-13] MEDS ORDERED: Atarax10 MG PO (17:21)
[2021-10-13] MEDS ORDERED: AZIT500 PO (17:21)
[2021-10-13] MEDS ORDERED: IPRAT-ALBUT 0.5-3 ML INH (17:22)
[2021-10-13] MEDS ORDERED: MIRALAX17 GM PO (17:23)
[2021-10-13] MEDS ORDERED: FLOVENT HFA12 GM INH (17:25)
--- NOTE | 2021-10-13 17:56 | NUR ---
PATIENT DISCHARGED AT 1750
== END 2021-10-13 17:50 | disposition home or self-care (01) | DRG 189 ==
LOC: ER 15:31 → MEDS 21:22
PROVIDERS: Emergency Medicine; Family Medicine; Student in an Organized Health Care Education/Training Program; ADMIT Internal Medicine
PROC: 5A09457 Assistance with Respiratory Ventilation, 24-96 Consecutive Hours, Continuous Positive Airway Pressure (ICD-10-PCS; principal; 2021-10-10)
DX: J96.01 Acute respiratory failure with hypoxia (principal); J44.1 Chronic obstructive pulmonary disease with (acute) exacerbation; Z66 Do not resuscitate; M19.90 Unspecified osteoarthritis, unspecified site; F17.210 Nicotine dependence, cigarettes, uncomplicated; I50.9 Heart failure, unspecified; I25.10 Atherosclerotic heart disease of native coronary artery without angina pectoris; F32.A Depression, unspecified; G30.8 Other Alzheimer's disease; F02.80 Dementia in other diseases classified elsewhere, unspecified severity, without behavioral disturbance, psychotic disturbance, mood disturbance, and anxiety; F41.3 Other mixed anxiety disorders; K59.00 Constipation, unspecified; Z96.642 Presence of left artificial hip joint; Z85.828 Personal history of other malignant neoplasm of skin; Z90.49 Acquired absence of other specified parts of digestive tract; Z95.1 Presence of aortocoronary bypass graft; Z90.710 Acquired absence of both cervix and uterus; Z98.890 Other specified postprocedural states; Z79.51 Long term (current) use of inhaled steroids; Z79.52 Long term (current) use of systemic steroids; Z79.899 Other long term (current) drug therapy
CPT/HCPCS: 36415; 71045; 80048; 80053; 82803; 83880; 84145; 84484; 85025; 93005; 93010; 94640; 94644; 94660; 94664; 94762; 96374; 96375; 97110; 97116; 97161; 97530; 99285-25; A9270; J0456; J0696; J1650; J2920; J2930; J7050; J7512

== ENCOUNTER 2021-11-29 22:08 | Emergency (ER) | payer MEDICARE ==
[~2021-11-29] VITALS: Ht 167.6 cm; Wt 68.0 kg
[~2021-11-29 22:08] MED LIST changes: +ANORO ELLIPTA1 EACH INH; +Atarax10 MG PO; +BUDESONIDE0.5 MG/2 M INH; +Brovana15 MCG/2 M INH; +DILTIAZEM 24HR300 MG PO; +FLOVENT HFA12 GM INH; +IBUP200 PO; +IPRAT-ALBUT 0.5-3 ML INH; +MIRALAX17 GM PO
[2021-11-29 22:40] LABS: BASOPHILS ABSOLUTE AUTO 0.06 K/mm3 (0.00-0.23); BASOPHILS PERCENT AUTO 1 % (0-2); EOSINOPHILS ABSOLUTE AUTO 0.16 K/mm3 (0.00-0.68); EOSINOPHILS PERCENT AUTO 2 % (0-6); Hematocrit 41.8 % (33.0-51.0); Hemoglobin 13.5 g/dL (11.5-16.0); IMMATURE GRAN ABSOLUTE AUTO 0.17 K/mm3 (0.00-0.10); IMMATURE GRAN PERCENT AUTO 2 % (0-1); LYMPHOCYTES ABSOLUTE AUTO 2.18 K/mm3 (0.84-5.20); LYMPHOCYTES PERCENT AUTO 25 % (21-46); MONOCYTES ABSOLUTE AUTO 0.95 K/mm3 (0.16-1.47); MONOCYTES PERCENT AUTO 11 % (4-13); Mean Corpuscular HGB 31.5 pg (26.0-34.0); Mean Corpuscular HGB Conc 32.3 g/dL (31.5-36.5); Mean Corpuscular Volume 97 fL (80-100); Mean Platelet Volume 8.9 fL (9.1-12.4); NEUTROPHILS ABSOLUTE AUTO 5.39 K/mm3 (1.96-9.15); NEUTROPHILS PERCENT AUTO 60 % (41-73); Platelet Count 298 K/mm3 (150-400); RDW Coefficient Variation 16.7 % (11.7-14.2); RDW Standard Deviation 60.1 fL (35.1-46.3); Red Blood Cell Count 4.29 M/mm3 (3.80-5.20); White Blood Cell Count 8.91 K/mm3 (4.00-11.30)
[2021-11-29 22:55] LABS: Albumin, Blood 3.1 g/dL (3.4-5.0); Bilirubin, Total 0.2 mg/dL (0.1-1.0); Bun/Creatinine Ratio 25.4 (12.0-20.0); Calcium, Blood 7.9 mg/dL (8.5-10.1); Creatinine, Blood 0.94 mg/dL (0.40-1.00); Globulin, Blood 3.2 g/dL (2.2-4.0); Potassium, Blood 4.3 mmol/L (3.5-5.5); Total Protein, Blood 6.3 g/dL (6.4-8.2)
[2021-11-30] MEDS ORDERED: Prednisone20 MG PO (00:15)
== END 2021-11-30 01:06 | disposition home or self-care (01) ==
LOC: ER 22:08
PROVIDERS: Emergency Medicine
DX: J44.1 Chronic obstructive pulmonary disease with (acute) exacerbation (principal); E78.5 Hyperlipidemia, unspecified; K21.9 Gastro-esophageal reflux disease without esophagitis; F17.210 Nicotine dependence, cigarettes, uncomplicated; Z79.899 Other long term (current) drug therapy
CPT/HCPCS: 36415; 71045; 80053; 85025; 93005; 93010; 99284-25; J7512

== ENCOUNTER → 2021-12-02 | Outpatient (CLI) | payer MEDICARE | END | disposition home or self-care (01) | LOC: LAB SHORT 13:59 → LAB 13:59 | DX: N39.0 Urinary tract infection, site not specified (principal) | CPT/HCPCS: 87077; 87086 ==

== ENCOUNTER → 2021-12-21 | Outpatient (CLI) | payer MEDICARE | END | disposition home or self-care (01) | LOC: LAB 16:27 → LAB SHORT 16:27 | DX: R30.0 Dysuria (principal) | CPT/HCPCS: 87086 ==

== ENCOUNTER → 2021-12-23 | Outpatient (CLI) | payer MEDICARE | END | disposition home or self-care (01) | LOC: LAB SHORT 15:00 | DX: N39.0 Urinary tract infection, site not specified (principal) | CPT/HCPCS: 87086 ==

== ENCOUNTER → 2022-01-14 | Outpatient (CLI) | payer MEDICARE | END | disposition home or self-care (01) | LOC: LAB SHORT 15:29 | DX: N39.0 Urinary tract infection, site not specified (principal) | CPT/HCPCS: 87086 ==

== ENCOUNTER 2022-02-05 17:38 | Inpatient (IN) | payer MEDICARE ==
[~2022-02-05] VITALS: Ht 170.2 cm; Wt 78.7 kg
[~2022-02-05 17:38] MED LIST changes: +DILTIAZEM 24HR180 M4 PO; -DILTIAZEM 24HR300 MG PO
[2022-02-05 18:29] LABS: BASOPHILS ABSOLUTE AUTO 0.02 K/mm3 (0.00-0.23); BASOPHILS PERCENT AUTO 0 % (0-2); EOSINOPHILS PERCENT AUTO 0 % (0-6); Hematocrit 41.5 % (33.0-51.0); Hemoglobin 13.2 g/dL (11.5-16.0); IMMATURE GRAN ABSOLUTE AUTO 0.05 K/mm3 (0.00-0.10); IMMATURE GRAN PERCENT AUTO 1 % (0-1); LYMPHOCYTES ABSOLUTE AUTO 0.44 K/mm3 (0.84-5.20); LYMPHOCYTES PERCENT AUTO 6 % (21-46); MONOCYTES ABSOLUTE AUTO 0.27 K/mm3 (0.16-1.47); MONOCYTES PERCENT AUTO 4 % (4-13); Mean Corpuscular HGB 32.3 pg (26.0-34.0); Mean Corpuscular HGB Conc 31.8 g/dL (31.5-36.5); Mean Corpuscular Volume 102 fL (80-100); Mean Platelet Volume 9.3 fL (9.1-12.4); NEUTROPHILS ABSOLUTE AUTO 6.44 K/mm3 (1.96-9.15); NEUTROPHILS PERCENT AUTO 89 % (41-73); Platelet Count 317 K/mm3 (150-400); RDW Standard Deviation 52.9 fL (35.1-46.3); Red Blood Cell Count 4.09 M/mm3 (3.80-5.20); White Blood Cell Count 7.22 K/mm3 (4.00-11.30)
[2022-02-05 18:47] LABS: Alanine Aminotransfer (ALT/SGP 26 U/L (12-78); Albumin, Blood 3.2 g/dL (3.4-5.0); Alk Phos 108 U/L (50-136); Anion Gap 3 mmol/L (6-16); Aspartate Aminotrans (AST/SGOT 15 U/L (12-37); Bilirubin, Total 0.6 mg/dL (0.1-1.0); Blood Urea Nitrogen 26 mg/dL (8-24); Bun/Creatinine Ratio 34.3 (12.0-20.0); CO2, Blood 26 mmol/L (21-32); Calcium, Blood 8.3 mg/dL (8.5-10.1); Chloride, Blood 110 mmol/L (98-108); Creatinine, Blood 0.76 mg/dL (0.40-1.00); Globulin, Blood 3.1 g/dL (2.2-4.0); Glomerular Filtration Rate >60 (60-); Glucose, Blood 143 mg/dL (70-99); Potassium, Blood 4.6 mmol/L (3.5-5.5); Sodium, Blood 139 mmol/L (136-145); Total Protein, Blood 6.3 g/dL (6.4-8.2)
[2022-02-06 01:01] LABS: BASOPHILS PERCENT AUTO 0 % (0-2); EOSINOPHILS PERCENT AUTO 0 % (0-6); Hematocrit 39.6 % (33.0-51.0); Hemoglobin 12.7 g/dL (11.5-16.0); IMMATURE GRAN ABSOLUTE AUTO 0.04 K/mm3 (0.00-0.10); IMMATURE GRAN PERCENT AUTO 1 % (0-1); LYMPHOCYTES ABSOLUTE AUTO 0.22 K/mm3 (0.84-5.20); LYMPHOCYTES PERCENT AUTO 4 % (21-46); MONOCYTES ABSOLUTE AUTO 0.05 K/mm3 (0.16-1.47); MONOCYTES PERCENT AUTO 1 % (4-13); Mean Corpuscular HGB 32.4 pg (26.0-34.0); Mean Corpuscular HGB Conc 32.1 g/dL (31.5-36.5); Mean Corpuscular Volume 101 fL (80-100); NEUTROPHILS ABSOLUTE AUTO 5.07 K/mm3 (1.96-9.15); NEUTROPHILS PERCENT AUTO 94 % (41-73); Platelet Count 290 K/mm3 (150-400); RDW Coefficient Variation 14.2 % (11.7-14.2); Red Blood Cell Count 3.92 M/mm3 (3.80-5.20); White Blood Cell Count 5.38 K/mm3 (4.00-11.30)
[2022-02-06 01:16] LABS: Anion Gap 10 mmol/L (6-16); Blood Urea Nitrogen 29 mg/dL (8-24); Bun/Creatinine Ratio 34.7 (12.0-20.0); CO2, Blood 23 mmol/L (21-32); Calcium, Blood 8.1 mg/dL (8.5-10.1); Chloride, Blood 108 mmol/L (98-108); Creatinine, Blood 0.84 mg/dL (0.40-1.00); Glomerular Filtration Rate >60 (60-); Glucose, Blood 222 mg/dL (70-99); Potassium, Blood 4.4 mmol/L (3.5-5.5); Sodium, Blood 141 mmol/L (136-145)
[2022-02-06 02:30] LABS: Influenza A, PCR NEGATIVE (NEGATIVE); Influenza B, PCR NEGATIVE (NEGATIVE); Resp Syncytial Virus, PCR NEGATIVE (NEGATIVE); SARS-Cov-2 (COVID-19) PCR, MMC NEGATIVE (NEGATIVE)
--- NOTE | 2022-02-06 02:48 | NUR ---
ADMIT NOTE HANDOFF RECEIVED FROM WELD ENGINEER ROMELIA. PT ARRIVED TO FLOOR VIA GURNEY. PT ORIENTED TO UNIT. CALL BUTTON WITHIN REACH. TELEMETRY IN PLACE.
--- NOTE | 2022-02-06 04:44 | NUR ---
SHIFT SUMMARY ADMITTED THIS SHIFT FOR COPD EXACERBATION. FULL CODE. EXPIRATORY WHEEZES IN LOWER LOBES. IV SOLUMEDROL IS SCHEDULED. TELEMETRY: NSR @ 71 BPM. CARDIAC DIET. SHE IS ON 3 LPM O2 HERE, PRN O2 @ HOME. SHE USES A FWW @ HOME. SHE IS FORGETFUL BUT CAN EXPRESS HER NEEDS.
[2022-02-06] MEDS ORDERED: DONEPEZIL HCL10 MG PO (09:08)
--- NOTE | 2022-02-06 19:43 | NUR ---
SHIFT SUMMARY PATIENT A&O FORGETFUL WITH HISTORY OF DEMENTIA AND AGUA CALIENTE. SBA TO BSC. PATIENT BECOMES SOB WITH EXERTION. ON 3.5L NC. C/O SOB AND NEEDING MULTIPLE BREATHING TX BY RT. ON TELE SR 70S. BED ALARM ARMED WITH BED IN LOW POSITION AND CALL LIGHT IN REACH. REPORT GIVEN TO ONCOMING RN.
[2022-02-07] MEDS ORDERED: Ventolin/Prove6.7 GM INH (01:41)
[2022-02-07] MEDS ORDERED: BUDESONIDE0.5 MG/25 INH (01:47)
[2022-02-07 05:22] LABS: Hematocrit 36.7 % (33.0-51.0); Hemoglobin 11.8 g/dL (11.5-16.0); Mean Corpuscular HGB 32.2 pg (26.0-34.0); Mean Corpuscular HGB Conc 32.2 g/dL (31.5-36.5); Mean Corpuscular Volume 100 fL (80-100); Mean Platelet Volume 9.5 fL (9.1-12.4); Platelet Count 288 K/mm3 (150-400); RDW Coefficient Variation 14.1 % (11.7-14.2); RDW Standard Deviation 52.2 fL (35.1-46.3); Red Blood Cell Count 3.66 M/mm3 (3.80-5.20)
--- NOTE | 2022-02-07 05:29 | NUR ---
OWNER OPERATOR SUMMARY AWAKE AT SHIFT COMMENCE, ASSISTED WITH BEDSIDE COMMODE, TOLERATED HS MEDS. MED TELE SINUS. BED ALARM ON FOR SAFETY REASONS - POTENTIAL FALL RISK. HAS BEEN RESTING QUIETLY WITH FEW INTERRUPTIONS SINCE. CALL LIGHT IN REACH
[2022-02-07 06:03] LABS: Albumin, Blood 2.9 g/dL (3.4-5.0); Bilirubin, Total 0.2 mg/dL (0.1-1.0); Bun/Creatinine Ratio 36.5 (12.0-20.0); Calcium, Blood 7.8 mg/dL (8.5-10.1); Creatinine, Blood 0.93 mg/dL (0.40-1.00); Globulin, Blood 2.8 g/dL (2.2-4.0); Potassium, Blood 3.8 mmol/L (3.5-5.5); Total Protein, Blood 5.7 g/dL (6.4-8.2)
--- NOTE | 2022-02-07 16:39 | NUR ---
DAY SHIFT SUMMARY 76 YR OLD FEMALE ADMITTED WITH MOLD SWABBER ACUTE EXACERBATION. PT ON 3L O2 NC AT 98% O2 SAT. SKIN INTACT/FRAILE. PT STATES O2 USED PRN AT HOME. A/O X3-4 FORGETFUL AT TIMES. VISITED AT BEDSIDE THROUGH MOST OF SHIFT. ABLE TO TAKE MEDS WHOLE. CALL LIGHT WITHIN REACH. PT ABLE TO USED CALL LIGHT APPROPRIATELY.
--- NOTE | 2022-02-08 03:06 | NUR ---
CV RN SUMMARY RESPIRATORY ISSUES CONTINUE. VOICED SOME SOB, REMAINS ON O2 PER NC AND RT NOTIFIED. TREATMENTS GIVEN. CURRENTLY RESTING QUIETLY WITH FEW INTERRUPTIONS. CALL LIGHT IN REACH. WAS ASSISTED TO BEDSIDE COMMODE A FEW TIMES, HAD LARGE BM.
[2022-02-08 05:32] LABS: Hematocrit 39.3 % (33.0-51.0); Hemoglobin 12.5 g/dL (11.5-16.0); Mean Corpuscular HGB 32.6 pg (26.0-34.0); Mean Corpuscular HGB Conc 31.8 g/dL (31.5-36.5); Mean Corpuscular Volume 102 fL (80-100); Mean Platelet Volume 9.3 fL (9.1-12.4); Platelet Count 301 K/mm3 (150-400); RDW Coefficient Variation 14.5 % (11.7-14.2); RDW Standard Deviation 54.2 fL (35.1-46.3); Red Blood Cell Count 3.84 M/mm3 (3.80-5.20); White Blood Cell Count 11.28 K/mm3 (4.00-11.30)
[2022-02-08 05:58] LABS: Alanine Aminotransfer (ALT/SGP 23 U/L (12-78); Alk Phos 95 U/L (50-136); Anion Gap 8 mmol/L (6-16); Aspartate Aminotrans (AST/SGOT 9 U/L (12-37); Bilirubin, Total 0.3 mg/dL (0.1-1.0); Blood Urea Nitrogen 36 mg/dL (8-24); Bun/Creatinine Ratio 42.1 (12.0-20.0); CO2, Blood 25 mmol/L (21-32); Calcium, Blood 7.8 mg/dL (8.5-10.1); Chloride, Blood 106 mmol/L (98-108); Creatinine, Blood 0.86 mg/dL (0.40-1.00); Globulin, Blood 3.1 g/dL (2.2-4.0); Glomerular Filtration Rate >60 (60-); Glucose, Blood 147 mg/dL (70-99); Potassium, Blood 4.2 mmol/L (3.5-5.5); Sodium, Blood 139 mmol/L (136-145); Total Protein, Blood 6.1 g/dL (6.4-8.2)
--- NOTE | 2022-02-08 16:19 | NUR ---
DAY SHIFT SUMMARY 76 YR OLD FEMALE ADMITTED FOR COPD EXACERBATION. 3L O2 NC, CONTINUES TO HAVE SOB WITH 3L, O2 SAT OF 98%. 2 PERSON ASSIST TO BSC. A/O X3-4 SOMETIMES FORGETFUL. CALL LIGHT WITHIN REACH AND ABLE TO CALL APPROPRIATELY.
--- NOTE | 2022-02-09 01:14 | NUR ---
SEO ASSISTANT DOCUMENTATION REVIEWED, I AGREE WITH DOCUMENTATION
--- NOTE | 2022-02-09 04:41 | NUR ---
YARD SUPERVISOR COTTON GIN SUMMARY AWAKE AT INTERVALS WITH C/O "DIFFICULTY" BREATHING. LUNG SOUNDS WHEEZE WITH EXPIRATIONS PER AUSCULTATION. RT GIVING TREATMENTS AND MEDICATIONS PER MAR. AMADOR RESTING QUIETLY WITHOUT NOTED ACUTE DISTRESS. CALL LIGHT INE REACH
[2022-02-09 06:09] LABS: HEMOGLOBIN A1C 5.5 % (4.8-5.6)
[2022-02-09] MEDS ORDERED: AMOCLA500 PO (11:44)
[2022-02-09] MEDS ORDERED: BENZ100A PO (11:45)
[2022-02-09] MEDS ORDERED: GUAI600T33 PO (11:46)
[2022-02-09] MEDS ORDERED: OMEP20ER PO (11:47)
[2022-02-09] MEDS ORDERED: PRED20 PO (11:52)
--- NOTE | 2022-02-09 14:30 | NUR ---
DISCHARGE SUMMARY PT A/O X3 AND ADMITTED FOR COPD EXACERBATION. REFUSED HOME HEALTH AT DISCHARGE. LIVES WITH AND ROOM MATE. EDUCATED PT ON NEW MEDICATIONS AND SHE WAS RECEPTIVE. EXPERIENCED A PERIOD OF DYSPNEA AND WHEEZING PRIOR TO DISCHARGE. SEEN AND TREATED BY RESPIRATORY THERAPY PRIOR TO LEAVING.
== END 2022-02-09 14:00 | disposition home health service (06) | DRG 189 ==
LOC: ER 17:38 → MEDS 17:39 → ENPENDDIS 02-09 11:13 → MEDS 02-09 14:00
PROVIDERS: Emergency Medicine; Internal Medicine; ADMIT Family Medicine
DX: J96.21 Acute and chronic respiratory failure with hypoxia (principal); J44.1 Chronic obstructive pulmonary disease with (acute) exacerbation; R73.9 Hyperglycemia, unspecified; I25.10 Atherosclerotic heart disease of native coronary artery without angina pectoris; T38.0X5A Adverse effect of glucocorticoids and synthetic analogues, initial encounter; Z99.81 Dependence on supplemental oxygen; Z95.1 Presence of aortocoronary bypass graft; Z20.822 Contact with and (suspected) exposure to COVID-19; F17.210 Nicotine dependence, cigarettes, uncomplicated; F32.A Depression, unspecified; E78.5 Hyperlipidemia, unspecified; K21.9 Gastro-esophageal reflux disease without esophagitis; M19.90 Unspecified osteoarthritis, unspecified site; F03.90 Unspecified dementia, unspecified severity, without behavioral disturbance, psychotic disturbance, mood disturbance, and anxiety; Z90.710 Acquired absence of both cervix and uterus; Z98.890 Other specified postprocedural states; Z90.49 Acquired absence of other specified parts of digestive tract; Z96.642 Presence of left artificial hip joint; Z79.899 Other long term (current) drug therapy
CPT/HCPCS: 0241U; 36415; 71045; 80048; 80053; 83036; 83880; 84484; 85025; 85027; 93005; 93010; 94640; 94664; 94760; 96372; 96374; 96376; 99285-25; A9270; G0378; J1650; J2930

== ENCOUNTER 2022-02-14 21:57 | Inpatient (IN) | payer MEDICARE ==
[~2022-02-14] VITALS: Ht 167.6 cm; Wt 80.8 kg
[~2022-02-14 21:57] MED LIST changes: +AMOCLA500 PO; +BUDESONIDE0.5 MG/25 INH; +DONEPEZIL HCL10 MG PO; +OMEP20ER PO; +Ventolin/Prove6.7 GM INH
[2022-02-14 22:44] LABS: BASOPHILS ABSOLUTE AUTO 0.03 K/mm3 (0.00-0.23); BASOPHILS PERCENT AUTO 0 % (0-2); EOSINOPHILS PERCENT AUTO 0 % (0-6); Hematocrit 41.3 % (33.0-51.0); Hemoglobin 13.3 g/dL (11.5-16.0); IMMATURE GRAN PERCENT AUTO 1 % (0-1); LYMPHOCYTES ABSOLUTE AUTO 0.23 K/mm3 (0.84-5.20); LYMPHOCYTES PERCENT AUTO 2 % (21-46); MONOCYTES PERCENT AUTO 3 % (4-13); Mean Corpuscular HGB Conc 32.2 g/dL (31.5-36.5); Mean Corpuscular Volume 100 fL (80-100); Mean Platelet Volume 9.2 fL (9.1-12.4); NEUTROPHILS ABSOLUTE AUTO 14.12 K/mm3 (1.96-9.15); NEUTROPHILS PERCENT AUTO 94 % (41-73); Platelet Count 246 K/mm3 (150-400); RDW Coefficient Variation 14.3 % (11.7-14.2); RDW Standard Deviation 53.2 fL (35.1-46.3); Red Blood Cell Count 4.15 M/mm3 (3.80-5.20); White Blood Cell Count 14.98 K/mm3 (4.00-11.30)
[2022-02-14 23:02] LABS: Albumin, Blood 2.9 g/dL (3.4-5.0); Albumin/Globulin Ratio 0.9 (0.8-1.8); Bilirubin, Total 0.2 mg/dL (0.1-1.0); Bun/Creatinine Ratio 29.8 (12.0-20.0); Creatinine, Blood 0.97 mg/dL (0.40-1.00); Globulin, Blood 3.2 g/dL (2.2-4.0); Magnesium, Blood 2.3 mg/dL (1.6-2.4); Potassium, Blood 3.9 mmol/L (3.5-5.5); Total Protein, Blood 6.1 g/dL (6.4-8.2)
[2022-02-14 23:31] LABS: Influenza A, PCR NEGATIVE (NEGATIVE); Influenza B, PCR NEGATIVE (NEGATIVE); Resp Syncytial Virus, PCR NEGATIVE (NEGATIVE); SARS-Cov-2 (COVID-19) PCR, MMC NEGATIVE (NEGATIVE)
[2022-02-15 03:39] LABS: PCO2 Arterial 39.5 mmHg (35-45); PO2 Arterial 118 mmHg (80-100); pH Blood Arterial 7.37 (7.35-7.45)
--- NOTE | 2022-02-15 06:30 | NUR ---
SHIFT SUMMARY: PATIENT ARRIVED BY WILBER FROM ED AT 0117 AND WAS MOVED TO BED USING SLIDE SHEET. A&O X4, TALKATIVE AND JOKING WITH STAFF. PATIENT O2 SATS >96% ON BIPAP WITH 3L BLEED IN AT 14/8 SETTINGS. PATIENT WAS TITRATED DOWN TO 2L BLEED AFTER AM LABS AND CONTINUES TO SAT >96%. PATIENT DENIES CHEST PAIN AND SOB, IS PLEASANT AND COOPERATIVE WITH CARE. PATIENT HAS NOT BEEN MOVED FROM BED BUT POSITIONS SELF IN BED WELL AND STATES SHE USES BSC. NPO DUE TO BIPAP STATUS, ORAL CARE KIT IN ROOM. SKIN INTACT, NO PRESSURE ULCERS NOTED. CODE STATUS UPDATED TO DNR AND ADMIT COMPLETE. WILL CONTINUE TO MONITOR AND REPORT TO ONCOMING RN.
[2022-02-15 06:45] LABS: BASOPHILS ABSOLUTE AUTO 0.02 K/mm3 (0.00-0.23); BASOPHILS PERCENT AUTO 0 % (0-2); EOSINOPHILS PERCENT AUTO 0 % (0-6); Hematocrit 38.7 % (33.0-51.0); Hemoglobin 12.3 g/dL (11.5-16.0); IMMATURE GRAN ABSOLUTE AUTO 0.16 K/mm3 (0.00-0.10); IMMATURE GRAN PERCENT AUTO 1 % (0-1); LYMPHOCYTES ABSOLUTE AUTO 0.23 K/mm3 (0.84-5.20); LYMPHOCYTES PERCENT AUTO 2 % (21-46); MONOCYTES ABSOLUTE AUTO 0.08 K/mm3 (0.16-1.47); MONOCYTES PERCENT AUTO 1 % (4-13); Mean Corpuscular HGB 32.2 pg (26.0-34.0); Mean Corpuscular HGB Conc 31.8 g/dL (31.5-36.5); Mean Corpuscular Volume 101 fL (80-100); Mean Platelet Volume 9.2 fL (9.1-12.4); NEUTROPHILS ABSOLUTE AUTO 12.24 K/mm3 (1.96-9.15); NEUTROPHILS PERCENT AUTO 96 % (41-73); Platelet Count 212 K/mm3 (150-400); RDW Coefficient Variation 14.5 % (11.7-14.2); Red Blood Cell Count 3.82 M/mm3 (3.80-5.20); White Blood Cell Count 12.73 K/mm3 (4.00-11.30)
[2022-02-15 06:48] LABS: Alanine Aminotransfer (ALT/SGP 35 U/L (12-78); Albumin, Blood 2.8 g/dL (3.4-5.0); Alk Phos 88 U/L (50-136); Anion Gap 9 mmol/L (6-16); Aspartate Aminotrans (AST/SGOT 12 U/L (12-37); Bilirubin, Total 0.3 mg/dL (0.1-1.0); Blood Urea Nitrogen 30 mg/dL (8-24); Bun/Creatinine Ratio 35.2 (12.0-20.0); CO2, Blood 23 mmol/L (21-32); Calcium, Blood 8.2 mg/dL (8.5-10.1); Chloride, Blood 113 mmol/L (98-108); Creatinine, Blood 0.85 mg/dL (0.40-1.00); Globulin, Blood 2.7 g/dL (2.2-4.0); Glomerular Filtration Rate >60 (60-); Glucose, Blood 160 mg/dL (70-99); Potassium, Blood 4.3 mmol/L (3.5-5.5); Sodium, Blood 145 mmol/L (136-145); Total Protein, Blood 5.5 g/dL (6.4-8.2)
[2022-02-15 06:52] LABS: CPK Creatine Kinase 45 U/L (26-193)
[2022-02-15 15:03] LABS: CPK Creatine Kinase 47 U/L (26-193)
--- NOTE | 2022-02-15 16:27 | NUR ---
SUMMARY PT REMAINS ON BIPAP AT THIS TIME. SHE WAS PLACED ON 3 L O2 VIA NC THIS AFTERNOON TO EAT LUNCH. PT TOLERATED NC FOR APPROX 1 HR, BIPAP REPLACED. LUNGS REMAIN TIGHT, DECREASED BREATH SOUNDS, BILAT BASES, OCCASIONAL DRY COUGH NOTED. PT'S ADVANCED DIRECTIVE PLACED IN CHART, DNR BAND PLACED ON LEFT WRIST. PT'S HAS BEEN AT THE BEDSIDE. PT'S IS REQUESTING A PULMONOLOGY CONSULT. NO OTHER ACUTE CHANGE NOTED. TOLERATING PO INTAKE, VOIDING WNL, WCTM & REPORT TO DEWAYNE ESPANA.
--- NOTE | 2022-02-15 22:25 | NUR ---
CARE ASSUMPTION: PATIENT WATCHING TV IN BED, O2 SATS >96% ON BIPAP. PATIENT REQUESTED HOT TEA, "CAKE," AND HER PUDDING CUP. USED 3L NC WHILE EATING AND THEN HAD INCREASED WORK OF BREATHING. ORAL CARE PROVIDED AND BIPAP PUT IN PLACE. MEDICATED PER EMAR. BED LOW AND CALL LIGHT IN REACH.
[2022-02-16 04:28] LABS: BASOPHILS ABSOLUTE AUTO 0.02 K/mm3 (0.00-0.23); BASOPHILS PERCENT AUTO 0 % (0-2); EOSINOPHILS PERCENT AUTO 0 % (0-6); Hematocrit 35.4 % (33.0-51.0); Hemoglobin 11.4 g/dL (11.5-16.0); IMMATURE GRAN ABSOLUTE AUTO 0.16 K/mm3 (0.00-0.10); IMMATURE GRAN PERCENT AUTO 1 % (0-1); LYMPHOCYTES ABSOLUTE AUTO 0.35 K/mm3 (0.84-5.20); LYMPHOCYTES PERCENT AUTO 3 % (21-46); MONOCYTES ABSOLUTE AUTO 0.17 K/mm3 (0.16-1.47); MONOCYTES PERCENT AUTO 1 % (4-13); Mean Corpuscular HGB 31.7 pg (26.0-34.0); Mean Corpuscular HGB Conc 32.2 g/dL (31.5-36.5); Mean Corpuscular Volume 98 fL (80-100); Mean Platelet Volume 9.5 fL (9.1-12.4); NEUTROPHILS PERCENT AUTO 95 % (41-73); Platelet Count 196 K/mm3 (150-400); RDW Coefficient Variation 14.4 % (11.7-14.2); RDW Standard Deviation 52.5 fL (35.1-46.3)
[2022-02-16 04:48] LABS: Anion Gap 6 mmol/L (6-16); Blood Urea Nitrogen 33 mg/dL (8-24); Bun/Creatinine Ratio 42.8 (12.0-20.0); CO2, Blood 25 mmol/L (21-32); Calcium, Blood 7.9 mg/dL (8.5-10.1); Chloride, Blood 111 mmol/L (98-108); Creatinine, Blood 0.77 mg/dL (0.40-1.00); Glomerular Filtration Rate >60 (60-); Glucose, Blood 166 mg/dL (70-99); Potassium, Blood 4.3 mmol/L (3.5-5.5); Sodium, Blood 142 mmol/L (136-145)
--- NOTE | 2022-02-16 05:32 | NUR ---
SHIFT SUMMARY: PATIENT HAD BIPAP IN PLACE T/O SHIFT TO THIS TIME WITH 1.5L BLEED. O2 SATS >96% ALL VSS T/O SHIFT. PATIENT PLEASANT AND COOPERATIVE WITH CARE. HAS NOT USED CALL LIGHT THIS SHIFT, THOUGH IN REACH AND EDUCATED X3 ON USE, BUT DOES MAKE NEEDS KNOWN WHEN STAFF IS IN ROOM AND/OR SUGGESTS A NEED PATIENT MAY HAVING (EG, TOILETING). PATIENT SLEPT WELL. WILL CONTINUE TO MONITOR AND REPORT TO ONCOMING RN.
--- NOTE | 2022-02-16 08:04 | NUR ---
AM NOTE: ALERT AND ORIENTED X3-4. HISTORY OF DEMENTIA. OCCASIONAL CONFUSION PER REPORT. DENIES NUMBNESS/TINGLING. STATES SHE OCCASIONALLY USES CANE. SBA TO BEDSIDE COMMODE. ABLE TO MOVE ALL EXTREMITIES AND TURN SELF IN BED. TELE SHOWING SINUS RHYTHM WITH HR 60-70'S. DENIES CHEST PAIN/PRESSURE. BP STABLE. ON BIPAP THIS AM 14/8 AND 1.5L BLEED IN. RESPIRATORY CARE WITH BREATHING TREATMENTS. 3L NASAL CANNULA WHEN OFF BIPAP. EXPIRATORY WHEEZE HEARD IN UPPER LOBES. PT STATES HER BREATHING HAS SLIGHTLY IMPROVED, BUT SHE STILL FEELS SHE IS HAVING TROUBLE. DENIES ABDOMINAL PAIN/NAUSEA. EATING BREAKFAST AT THIS TIME. CALL LIGHT IN REACH. IV SALINE LOCKED. CALL LIGHT IN REACH. WILL CONTINUE TO MONITOR.
--- NOTE | 2022-02-16 10:44 | NUR ---
SPOKE WITH DR. BLACKMON THIS AM, POSSIBLY CONSIDERING BIPAP FOR HOME. SPOKE WITH CASE MANAGEMENT. CASE MANAGEMENT TO LOOK INTO.
--- NOTE | 2022-02-16 14:45 | NUR ---
Upon receiving a referral for spiritual care, I visit pt. Pt is lying in bed and alert. Pt's family are bedside. Pt jokes often but does admit to having "a rough go at it." Pt is unclear as to a d/c date but hopes it will be soon. Pt is grateful for the hospital staff and extremely grateful for her family who are an "incredible support." Pt says that she takes life a day at a time but is ready to go to [facility]. She states that she is not religous but is very appreciative of the visit. I normalize pt's experience, reinforce helpful attitudes and practices and provide therapeutic listening and levity. Pt responds well and shows signs of an elevated mood. I will continue to remain available to pt and family.
--- NOTE | 2022-02-16 17:41 | NUR ---
SHIFT SUMMARY: NO ACUTE CHANGES. SEE AM NOTE FOR UPDATES. NO CHANGES IN NEURO. REMAINS ON 2-3L NASAL CANNULA THROUGHOUT THE DAY, WEARING BIPAP WHEN RESPIRATORY RATE INCREASES. PATIENT STATES AT TIMES SHE IS HAVING HARD TIME BREATHING, RELIEVED WITH BIPAP. NO CHANGES IN TELE. MEDICAL STATUS. VITAL SIGNS REMAIN STABLE. TOLERATING PO DIET. UP TO BSC WITH ONE PERSON ASSIST. CALL LIGHT IN REACH. AND NIECE IN TO VISIT. SPOKE WITH DAUGHTER DEXTER ON PHONE. CASE MANAGEMENT HELPING ASSIST WITH HOME BIPAP. WILL CONTINUE TO MONITOR AND REPORT OFF.
--- NOTE | 2022-02-17 05:36 | NUR ---
HEPATOLOGY PHYSICIAN SUMMARY PT IS ALERT AND COMMUNICATING APPROPRIATELY DSPITE OCCASIONAL CONFUSION. PT HAS MAINTAINED O2 SATS >90% ON BIPAP W 3L BLEED IN ALL NIGHT. VSS AND AFEBRILE. NO OVERNIGHT EVENTS THE PT SLEPT COMFORTABLY IN BED W THE CALL LIGHT WITHIN REACH. WILL REPORT TO ONCOMING RN.
[2022-02-17] MEDS ORDERED: DOXY100 PO (12:05)
--- NOTE | 2022-02-17 16:05 | NUR ---
PT DISCHARGED HOME WITH AND CAREGIVER. ALL DISCHARGE INSTRUCTIONS REVIEWED WITH PT AND HER INCLUDING FOLLOWUP APPOINTMENT, MEDICATION LIST AND EDUCATION. PT AND HER HAVE NO QUESTIONS AT THIS TIME AND VERBALIZE UNDERSTANDING OF INSTRUCTIONS. IVs REMOVED WNL. ALL BELONGINGS SENT HOME WITH PT. NO FURTHER DISCHARGE NEEDS IDENTIFIED, PT ALERT, ORIENTED AND AMBULATORY AT TIME OF DISHCARGE.
== END 2022-02-17 16:08 | disposition home or self-care (01) | DRG 189 ==
LOC: ER 21:57 → PCU 23:22
PROVIDERS: Family Medicine; Student in an Organized Health Care Education/Training Program; ADMIT Internal Medicine
PROC: 5A09457 Assistance with Respiratory Ventilation, 24-96 Consecutive Hours, Continuous Positive Airway Pressure (ICD-10-PCS; principal; 2022-02-14)
DX: J96.21 Acute and chronic respiratory failure with hypoxia (principal); J44.1 Chronic obstructive pulmonary disease with (acute) exacerbation; E87.1 Hypo-osmolality and hyponatremia; Z20.822 Contact with and (suspected) exposure to COVID-19; J96.22 Acute and chronic respiratory failure with hypercapnia; Z66 Do not resuscitate; R94.31 Abnormal electrocardiogram [ECG] [EKG]; I25.10 Atherosclerotic heart disease of native coronary artery without angina pectoris; F32.A Depression, unspecified; F03.90 Unspecified dementia, unspecified severity, without behavioral disturbance, psychotic disturbance, mood disturbance, and anxiety; E78.5 Hyperlipidemia, unspecified; K21.9 Gastro-esophageal reflux disease without esophagitis; M19.90 Unspecified osteoarthritis, unspecified site; F17.210 Nicotine dependence, cigarettes, uncomplicated; Z79.899 Other long term (current) drug therapy; Z96.612 Presence of left artificial shoulder joint; Z96.642 Presence of left artificial hip joint; Z71.6 Tobacco abuse counseling; Z79.52 Long term (current) use of systemic steroids; Z99.81 Dependence on supplemental oxygen; Z95.1 Presence of aortocoronary bypass graft; Z90.710 Acquired absence of both cervix and uterus; Z98.890 Other specified postprocedural states; Z90.49 Acquired absence of other specified parts of digestive tract
CPT/HCPCS: 0241U; 36415; 36600; 71045; 80048; 80053; 82550; 82803; 83735; 83880; 84484; 85025; 87070; 87205; 93005; 93010; 94640; 94644; 94660; 94664; 94760; 94761; 94762; 96374; 99285-25; A9270; J0456; J0610; J1650; J2930; J7040; J7050

== ENCOUNTER 2022-03-08 18:41 | Emergency (ER) | payer MEDICARE ==
[~2022-03-08] VITALS: Ht 170.2 cm; Wt 68.0 kg
[~2022-03-08 18:41] MED LIST changes: +DOXY100 PO
[2022-03-08 19:10] LABS: BASOPHILS ABSOLUTE AUTO 0.02 K/mm3 (0.00-0.23); BASOPHILS PERCENT AUTO 0 % (0-2); EOSINOPHILS ABSOLUTE AUTO 0.01 K/mm3 (0.00-0.68); EOSINOPHILS PERCENT AUTO 0 % (0-6); Hematocrit 40.4 % (33.0-51.0); Hemoglobin 13.2 g/dL (11.5-16.0); IMMATURE GRAN ABSOLUTE AUTO 0.16 K/mm3 (0.00-0.10); IMMATURE GRAN PERCENT AUTO 2 % (0-1); LYMPHOCYTES ABSOLUTE AUTO 0.41 K/mm3 (0.84-5.20); LYMPHOCYTES PERCENT AUTO 5 % (21-46); MONOCYTES ABSOLUTE AUTO 0.41 K/mm3 (0.16-1.47); MONOCYTES PERCENT AUTO 5 % (4-13); Mean Corpuscular HGB 32.6 pg (26.0-34.0); Mean Corpuscular HGB Conc 32.7 g/dL (31.5-36.5); Mean Corpuscular Volume 100 fL (80-100); Mean Platelet Volume 9.3 fL (9.1-12.4); NEUTROPHILS ABSOLUTE AUTO 6.81 K/mm3 (1.96-9.15); NEUTROPHILS PERCENT AUTO 87 % (41-73); Platelet Count 208 K/mm3 (150-400); RDW Coefficient Variation 15.1 % (11.7-14.2); RDW Standard Deviation 55.3 fL (35.1-46.3); Red Blood Cell Count 4.05 M/mm3 (3.80-5.20); White Blood Cell Count 7.82 K/mm3 (4.00-11.30)
[2022-03-08 19:24] LABS: Alanine Aminotransfer (ALT/SGP 34 U/L (12-78); Albumin, Blood 2.8 g/dL (3.4-5.0); Albumin/Globulin Ratio 0.9 (0.8-1.8); Alk Phos 92 U/L (50-136); Anion Gap 5 mmol/L (6-16); Aspartate Aminotrans (AST/SGOT 15 U/L (12-37); Bilirubin, Total 0.3 mg/dL (0.1-1.0); Blood Urea Nitrogen 25 mg/dL (8-24); Bun/Creatinine Ratio 33.1 (12.0-20.0); CO2, Blood 23 mmol/L (21-32); Chloride, Blood 113 mmol/L (98-108); Creatinine, Blood 0.76 mg/dL (0.40-1.00); Globulin, Blood 3.2 g/dL (2.2-4.0); Glomerular Filtration Rate >60 (60-); Glucose, Blood 128 mg/dL (70-99); Potassium, Blood 4.9 mmol/L (3.5-5.5); Sodium, Blood 141 mmol/L (136-145)
[2022-03-08 20:47] LABS: Influenza A Negative (NEGATIVE); Influenza B Negative (NEGATIVE)
[2022-03-08] MEDS ORDERED: LEVE500 PO (21:25)
[2022-03-08] MEDS ORDERED: Prednisone20 MG PO (21:25)
== END 2022-03-08 21:54 | disposition home or self-care (01) ==
LOC: ER 18:41
PROVIDERS: Emergency Medicine
DX: J44.1 Chronic obstructive pulmonary disease with (acute) exacerbation (principal); R56.9 Unspecified convulsions; F17.210 Nicotine dependence, cigarettes, uncomplicated; Z79.899 Other long term (current) drug therapy; Z79.51 Long term (current) use of inhaled steroids
CPT/HCPCS: 71045; 80053; 84484; 85025; 87804; 93005; 93010; 94640; 94664; J1953; J3475; J7512

== ENCOUNTER 2022-03-28 13:58 | Emergency (ER) | payer MEDICARE ==
[~2022-03-28] VITALS: Ht 170.2 cm; Wt 68.0 kg
[~2022-03-28 13:58] MED LIST changes: +CEPH500 PO; +LEVE500 PO
[2022-03-28] MEDS ORDERED: Penicillin V P500 MG PO (14:55)
[2022-03-28] MEDS ORDERED: LORA.5 PO (14:56)
[2022-03-28] MEDS ORDERED: MELO7.5 PO (14:56)
[2022-03-28] MEDS ORDERED: ONDA4ODT SL (14:57)
[2022-03-28] MEDS ORDERED: ACYC800 PO (14:58)
[2022-03-28 15:03] LABS: BASOPHILS ABSOLUTE AUTO 0.06 K/mm3 (0.00-0.23); BASOPHILS PERCENT AUTO 1 % (0-2); EOSINOPHILS PERCENT AUTO 1 % (0-6); IMMATURE GRAN PERCENT AUTO 4 % (0-1); LYMPHOCYTES ABSOLUTE AUTO 2.01 K/mm3 (0.84-5.20); LYMPHOCYTES PERCENT AUTO 16 % (21-46); MONOCYTES ABSOLUTE AUTO 1.17 K/mm3 (0.16-1.47); MONOCYTES PERCENT AUTO 9 % (4-13); Mean Corpuscular HGB 32.3 pg (26.0-34.0); Mean Corpuscular HGB Conc 32.4 g/dL (31.5-36.5); Mean Corpuscular Volume 100 fL (80-100); Mean Platelet Volume 8.9 fL (9.1-12.4); NEUTROPHILS PERCENT AUTO 69 % (41-73); Platelet Count 338 K/mm3 (150-400); RDW Coefficient Variation 13.9 % (11.7-14.2); RDW Standard Deviation 50.5 fL (35.1-46.3); Red Blood Cell Count 3.71 M/mm3 (3.80-5.20); White Blood Cell Count 12.54 K/mm3 (4.00-11.30)
[2022-03-28 15:23] LABS: Albumin, Blood 2.7 g/dL (3.4-5.0); Albumin/Globulin Ratio 0.9 (0.8-1.8); Bilirubin, Total 0.3 mg/dL (0.1-1.0); Bun/Creatinine Ratio 29.3 (12.0-20.0); Calcium, Blood 7.9 mg/dL (8.5-10.1); Creatinine, Blood 0.75 mg/dL (0.40-1.00); Globulin, Blood 2.9 g/dL (2.2-4.0); Potassium, Blood 4.1 mmol/L (3.5-5.5); Total Protein, Blood 5.6 g/dL (6.4-8.2)
[2022-03-28] MEDS ORDERED: FAMO20 PO (17:37)
[2022-03-28] MEDS ORDERED: Almacone Liqui355 ML PO (17:54)
== END 2022-03-28 18:13 | disposition home or self-care (01) ==
LOC: ER 13:58
PROVIDERS: Student in an Organized Health Care Education/Training Program
DX: R07.9 Chest pain, unspecified (principal); R10.13 Epigastric pain; R10.11 Right upper quadrant pain; D72.829 Elevated white blood cell count, unspecified; J44.9 Chronic obstructive pulmonary disease, unspecified; I25.10 Atherosclerotic heart disease of native coronary artery without angina pectoris; F03.90 Unspecified dementia, unspecified severity, without behavioral disturbance, psychotic disturbance, mood disturbance, and anxiety; K21.9 Gastro-esophageal reflux disease without esophagitis; F17.210 Nicotine dependence, cigarettes, uncomplicated; Z95.1 Presence of aortocoronary bypass graft; Z79.899 Other long term (current) drug therapy
CPT/HCPCS: 36415; 71045; 76705; 80053; 83690; 84484; 85025; 93005; 93010; A9270; J1885

== ENCOUNTER 2022-04-23 20:06 | Inpatient (IN) | payer MEDICARE ==
[~2022-04-23] VITALS: Ht 167.6 cm; Wt 75.0 kg
[~2022-04-23 20:06] MED LIST changes: +Almacone Liqui355 ML PO; +ONDA4ODT SL; +Penicillin V P500 MG PO
[2022-04-23 22:47] LABS: BASOPHILS ABSOLUTE AUTO 0.05 K/mm3 (0.00-0.23); BASOPHILS PERCENT AUTO 1 % (0-2); EOSINOPHILS ABSOLUTE AUTO 0.05 K/mm3 (0.00-0.68); EOSINOPHILS PERCENT AUTO 1 % (0-6); Hematocrit 38.9 % (33.0-51.0); Hemoglobin 12.5 g/dL (11.5-16.0); IMMATURE GRAN ABSOLUTE AUTO 0.17 K/mm3 (0.00-0.10); IMMATURE GRAN PERCENT AUTO 2 % (0-1); LYMPHOCYTES ABSOLUTE AUTO 0.79 K/mm3 (0.84-5.20); LYMPHOCYTES PERCENT AUTO 7 % (21-46); MONOCYTES ABSOLUTE AUTO 0.73 K/mm3 (0.16-1.47); MONOCYTES PERCENT AUTO 7 % (4-13); Mean Corpuscular HGB 31.8 pg (26.0-34.0); Mean Corpuscular HGB Conc 32.1 g/dL (31.5-36.5); Mean Corpuscular Volume 99 fL (80-100); NEUTROPHILS ABSOLUTE AUTO 9.29 K/mm3 (1.96-9.15); NEUTROPHILS PERCENT AUTO 84 % (41-73); Platelet Count 349 K/mm3 (150-400); RDW Coefficient Variation 13.4 % (11.7-14.2); RDW Standard Deviation 49.1 fL (35.1-46.3); Red Blood Cell Count 3.93 M/mm3 (3.80-5.20); White Blood Cell Count 11.08 K/mm3 (4.00-11.30)
[2022-04-23 23:10] LABS: Albumin, Blood 2.9 g/dL (3.4-5.0); Albumin/Globulin Ratio 0.9 (0.8-1.8); Bilirubin, Total 0.3 mg/dL (0.1-1.0); Bun/Creatinine Ratio 16.7 (12.0-20.0); Calcium, Blood 8.6 mg/dL (8.5-10.1); Creatinine, Blood 0.78 mg/dL (0.40-1.00); Globulin, Blood 3.4 g/dL (2.2-4.0); Potassium, Blood 4.7 mmol/L (3.5-5.5); Total Protein, Blood 6.3 g/dL (6.4-8.2)
[2022-04-23 23:23] LABS: Influenza A, PCR NEGATIVE (NEGATIVE); Influenza B, PCR NEGATIVE (NEGATIVE); Resp Syncytial Virus, PCR NEGATIVE (NEGATIVE); SARS-Cov-2 (COVID-19) PCR, MMC NEGATIVE (NEGATIVE)
--- NOTE | 2022-04-24 05:42 | NUR ---
SUPERINTENDENT JOB SUMMARY NEW ADMIT FROM THE ED TONIGHT. PT ADMITTED FOR R HIP FRACTURE. AAO TO SELF AND SITUATION BUT IS VERY FORGETFUL. BASELINE VASCULAR DEMENTIA WHICH PT IS ON HOSPICE AT HOME FOR. [facility] CALLED FOR UPDATE ON PT AND STATED HOSPICE WOULD NEED TO BE SET UP AGAIN PRIOR TO PT'S DC, CONTACT NUMBER [phone]. PAIN HAS BEEN MANAGED WITH IV MORPHINE 4 MG. VSS, WILL CONTINUE TO MONITOR.
--- NOTE | 2022-04-24 19:13 | NUR ---
SHIFT SUMMARY PATIENT CONFUSED AND FORGETFUL THROUGHOUT SHIFT. CURRENT DIAGNOSIS OF DEMENTIA. WENT FOR R HIP PINNING OF HIP FRACTURE WITH DR MARQUEZ. 2 AQUACELS TO RIGHT HIP. TOLERATING PO LIQUIDS AND REGULAR DIET. PAIN CONTROLLED WITH PO PAIN MEDICINE. DISCHARGE PLANNING SNF VS HOME ON HOSPICE.
--- NOTE | 2022-04-25 04:56 | NUR ---
ASSUMED CARE OF PT AT 1900. PT IS CONFUSED, ALERT TO SELF ONLY. POST OP DAY 1 FOR R HIP PINNING, CSM INTACT. PAIN CONTROLLED WITH PRN MEDICATION. PT INCONTINANT, HAS ATTNEDS IN PLACE. ABLE TO TAKE MEDS WHOLE WITH THINS. RESTS BETWEEN CARES, SLEEPS 7+ HOURS THIS SHIFT. VSS.
[2022-04-25 05:22] LABS: BASOPHILS ABSOLUTE AUTO 0.02 K/mm3 (0.00-0.23); BASOPHILS PERCENT AUTO 0 % (0-2); EOSINOPHILS PERCENT AUTO 0 % (0-6); Hematocrit 33.3 % (33.0-51.0); Hemoglobin 10.5 g/dL (11.5-16.0); IMMATURE GRAN ABSOLUTE AUTO 0.16 K/mm3 (0.00-0.10); IMMATURE GRAN PERCENT AUTO 2 % (0-1); LYMPHOCYTES ABSOLUTE AUTO 0.48 K/mm3 (0.84-5.20); LYMPHOCYTES PERCENT AUTO 5 % (21-46); MONOCYTES ABSOLUTE AUTO 0.41 K/mm3 (0.16-1.47); MONOCYTES PERCENT AUTO 4 % (4-13); Mean Corpuscular HGB 31.9 pg (26.0-34.0); Mean Corpuscular HGB Conc 31.5 g/dL (31.5-36.5); Mean Corpuscular Volume 101 fL (80-100); Mean Platelet Volume 9.5 fL (9.1-12.4); NEUTROPHILS ABSOLUTE AUTO 9.54 K/mm3 (1.96-9.15); NEUTROPHILS PERCENT AUTO 90 % (41-73); Platelet Count 322 K/mm3 (150-400); RDW Coefficient Variation 13.3 % (11.7-14.2); RDW Standard Deviation 49.8 fL (35.1-46.3); Red Blood Cell Count 3.29 M/mm3 (3.80-5.20); White Blood Cell Count 10.61 K/mm3 (4.00-11.30)
--- NOTE | 2022-04-25 14:37 | NUR ---
SHIFT SUMMARY PT ALERT/ORIENTED TO SELF/, PLEASANT & COOPERATIVE WITH CARE. POD1 R HIP NAILING, AQUACEL X2 DRY/INTACT W/SCANT DRAINAGE, NWB. STAND AT BEDSIDE NWB, BUT UNABLE TO PIVOT TO BSC/CHAIR. VOIDING WELL, CALLS APPROPRIATELY FOR BEDPAN, ATTENDS ON FOR LEAKAGE. VSS/3LNC BASELINE. SNEHAL PO. PAIN MANAGED WITH ROXINOL 0.25 ML. WILL REPORT TO NEXT RN.
--- NOTE | 2022-04-25 15:39 | NUR ---
ASSUMED CARE OF PT FROM TIM Verdin RN.
--- NOTE | 2022-04-25 18:52 | NUR ---
GAVE REPORT TO ONCOMING RN PT SAT UP ON EDGE OF BED BRIEFLY WITH ASSISTANCE. NOW LYING BACK DOWN W/BED ALARM ON. REQUESTING BREATHING TX, NOTIFIED RT.
--- NOTE | 2022-04-26 05:26 | NUR ---
ASSUMED CARE OF PT AT 1900. NO ACUTE CHANGES THIS SHIFT PT IS ORIENTED TO SELF ONLY, UNABLE TO AMBULATE OOB, USES BEDPAN TO VOID. POST OP DAY 2 FOR RIGHT HIP PINNING, CSM INTACT. PAIN CONTROLLED WITH PRN MORPHINE. PT RESTS BETWEEN CARES, SLEEPS 8+ HOURS THIS SHIFT. VSS. TOLERATING DIET. WILL CONTINUE TO MONITOR
[2022-04-26] MEDS ORDERED: LORA1 PO (08:34)
[2022-04-26] MEDS ORDERED: MAGNESIUM OXID500 MG PO (08:38)
[2022-04-26] MEDS ORDERED: MONT10T PO (08:38)
[2022-04-26] MEDS ORDERED: MORP20L (08:40)
[2022-04-26] MEDS ORDERED: HALO5 PO (08:42)
[2022-04-26] MEDS ORDERED: HYOS.125 PO (08:43)
[2022-04-26] MEDS ORDERED: CODACE30 PO (08:44)
[2022-04-26] MEDS ORDERED: Kenalog60 ML (08:45)
--- NOTE | 2022-04-26 14:56 | NUR ---
PHYSICAL THERAPY IN ROOM FOR EVAL, 2 PP SLIDE TO CHAIR W/PT MIN ASSIST, BLE ELEVATED.
[2022-04-26 15:10] LABS: Hematocrit 33.4 % (33.0-51.0); Hemoglobin 10.6 g/dL (11.5-16.0); Mean Corpuscular HGB 32.5 pg (26.0-34.0); Mean Corpuscular HGB Conc 31.7 g/dL (31.5-36.5); Mean Corpuscular Volume 103 fL (80-100); Mean Platelet Volume 9.6 fL (9.1-12.4); NRBC ABSOLUTE 0.04 K/mm3 (0.00-0.02); NRBC Auto 0.3 /100 WBC (0.0-0.2); Platelet Count 342 K/mm3 (150-400); RDW Coefficient Variation 13.7 % (11.7-14.2); Red Blood Cell Count 3.26 M/mm3 (3.80-5.20); White Blood Cell Count 12.43 K/mm3 (4.00-11.30)
--- NOTE | 2022-04-26 15:10 | NUR ---
SHIFT SUMMARY PT A&O TO SELF//FRIENDS, VSS/3LNC BASELINE. POD2 R HIP NAILING, AQUACEL X2 (TOP DRESSING CHANGED TODAY, OTHER CDI), TEDS/SCDS, NWB. PHYSICAL THERAPY AND I HELPED THE PT "SCOOT" OVER TO CHAIR, BLE ELEVATED. SNEHAL PO SOFT BITE SIZE FOR DENTURES. PAIN MANAGED WITH SCHEDULED ROXANOL BID AND TYLENOL. INCONTINENT/ATTENDS ON. WILL REPORT TO ONCOMING NOC JOVI.
--- NOTE | 2022-04-27 05:18 | NUR ---
ASSUMED CARE OF PT AT 1900 HRS. NO ACUTE CHANGES THIS SHIFT PT IS ALERT, ORIENTED TO SELF ONLY. POST OP DAY 2 FOR R HIP PINNING. PT UP IN CHAIR AT START OF SHIFT, ABLE TO TRANSFER PT BACK TO BED WITH 3 PPL ASSIST. PRN TYLNEOL FOR PAIN. ROXONOL INCREASED TO 20MG. SLEEPS BETWEEN CARES. SLEEPS 7+ HOURS THIS SHIFT. VSS. WILL CONTINUE TO MONITOR AND GIVE REPORT TO ONCOMING RN
[2022-04-27 05:27] LABS: BASOPHILS ABSOLUTE AUTO 0.05 K/mm3 (0.00-0.23); BASOPHILS PERCENT AUTO 1 % (0-2); EOSINOPHILS ABSOLUTE AUTO 0.22 K/mm3 (0.00-0.68); EOSINOPHILS PERCENT AUTO 2 % (0-6); Hematocrit 31.6 % (33.0-51.0); Hemoglobin 9.6 g/dL (11.5-16.0); IMMATURE GRAN ABSOLUTE AUTO 0.45 K/mm3 (0.00-0.10); IMMATURE GRAN PERCENT AUTO 5 % (0-1); LYMPHOCYTES ABSOLUTE AUTO 1.08 K/mm3 (0.84-5.20); LYMPHOCYTES PERCENT AUTO 12 % (21-46); MONOCYTES ABSOLUTE AUTO 0.73 K/mm3 (0.16-1.47); MONOCYTES PERCENT AUTO 8 % (4-13); Mean Corpuscular HGB 32.1 pg (26.0-34.0); Mean Corpuscular HGB Conc 30.4 g/dL (31.5-36.5); Mean Corpuscular Volume 106 fL (80-100); Mean Platelet Volume 9.7 fL (9.1-12.4); NEUTROPHILS ABSOLUTE AUTO 6.88 K/mm3 (1.96-9.15); NEUTROPHILS PERCENT AUTO 73 % (41-73); NRBC ABSOLUTE 0.05 K/mm3 (0.00-0.02); NRBC Auto 0.5 /100 WBC (0.0-0.2); Platelet Count 295 K/mm3 (150-400); RDW Coefficient Variation 13.8 % (11.7-14.2); RDW Standard Deviation 53.6 fL (35.1-46.3); Red Blood Cell Count 2.99 M/mm3 (3.80-5.20); White Blood Cell Count 9.41 K/mm3 (4.00-11.30)
[2022-04-27 06:03] LABS: Albumin, Blood 2.4 g/dL (3.4-5.0); Anion Gap 6 mmol/L (6-16); Blood Urea Nitrogen 25 mg/dL (8-24); Bun/Creatinine Ratio 33.6 (12.0-20.0); CO2, Blood 28 mmol/L (21-32); Chloride, Blood 104 mmol/L (98-108); Creatinine, Blood 0.74 mg/dL (0.40-1.00); Glomerular Filtration Rate 83 (60-); Glucose, Blood 100 mg/dL (70-99); Phosphorus, Blood 3.4 mg/dL (2.5-4.9); Potassium, Blood 4.5 mmol/L (3.5-5.5); Sodium, Blood 138 mmol/L (136-145)
--- NOTE | 2022-04-27 18:59 | NUR ---
SHIFT SUMMARY POD 3 R HIP PINNING. NO ACUTE CHANGES THIS SHIFT. CHANGED BOTH AQUACEL DRESSINGS TODAY. PATIENT MOSTLY INCONTINENT OF URINE, ATTENDS IN PLACE & CLEAN AT THIS TIME. PATIENT REFUSED OT THIS AM BUT SAT AT EDGE OF BED WITH PHYSICAL THERAPY. PAIN MANAGED WITH ROXANOL PER EMAR. CALLS APPROPRIATELY, WILL REPORT TO ONCOMING RN.
--- NOTE | 2022-04-28 04:23 | NUR ---
SHIFT SUMMARY A/O X2-3. POD4 R HIP PINNING- AQUACEL IN PLACE. NO ACUTE EVENTS OVER NIGHT. VITAL SIGNS STABLE. TOLERATING PO INTAKE. REMAINS ON 3L NC. BEDREST THROUGHOUT SHIFT. TREATED PER EMAR FOR PAIN. WILL CONTINUE TO MONITOR AND REPORT TO ONCOMING RN.
[2022-04-28 06:14] LABS: PCO2 Arterial 43.2 mmHg (35-45); PO2 Arterial 67.7 mmHg (80-100); pH Blood Arterial 7.46 (7.35-7.45)
--- NOTE | 2022-04-28 06:29 | NUR ---
SALVATIONIST CALLED AT APPROX 0600 DUE TO DECREASED LOC. SALVATIONIST IN ROOM. LABS DRAWN, BREATHING TREATMENT GIVEN. DR MILLER NOTIFIED. LOC IMPROVED, PT REMAINS IN ROOM. SEE SALVATIONIST DOCUMENTATION.
[2022-04-28 06:46] LABS: Hematocrit 30.9 % (33.0-51.0); Hemoglobin 9.7 g/dL (11.5-16.0); Mean Corpuscular HGB 31.9 pg (26.0-34.0); Mean Corpuscular HGB Conc 31.4 g/dL (31.5-36.5); Mean Corpuscular Volume 102 fL (80-100); Mean Platelet Volume 9.3 fL (9.1-12.4); NRBC ABSOLUTE 0.08 K/mm3 (0.00-0.02); NRBC Auto 0.8 /100 WBC (0.0-0.2); Platelet Count 353 K/mm3 (150-400); RDW Coefficient Variation 13.9 % (11.7-14.2); RDW Standard Deviation 51.6 fL (35.1-46.3); Red Blood Cell Count 3.04 M/mm3 (3.80-5.20); White Blood Cell Count 9.85 K/mm3 (4.00-11.30)
[2022-04-28 07:12] LABS: Bun/Creatinine Ratio 24.5 (12.0-20.0); Calcium, Blood 8.4 mg/dL (8.5-10.1); Creatinine, Blood 0.78 mg/dL (0.40-1.00); Potassium, Blood 4.2 mmol/L (3.5-5.5)
[2022-04-28 07:22] LABS: BAND PERCENT MAN 3 % (0-8); BASOPHILS ABSOLUTE MAN 0.09 K/mm3 (0.00-0.23); BASOPHILS PERCENT MAN 1 % (0-2); EOSINOPHILS ABSOLUTE MAN 0.29 K/mm3 (0.00-0.68); EOSINOPHILS PERCENT MAN 3 % (0-6); LYMPHOCYTES ABSOLUTE MAN 1.08 K/mm3 (0.84-5.20); LYMPHOCYTES PERCENT MAN 11 % (21-46); METAMYELOCYTE ABSOLUTE MAN 0.09 K/mm3 (0.00-0.00); METAMYELOCYTE PERCENT MAN 1 % (0-0); MONOCYTES ABSOLUTE MAN 0.68 K/mm3 (0.16-1.47); MONOCYTES PERCENT MAN 7 % (4-13); MYELOCYTE ABSOLUTE MAN 0.29 K/mm3 (0.00-0.00); MYELOCYTE PERCENT MAN 3 % (0-0); NEUTROPHILS ABSOLUTE MAN 7.28 K/mm3 (1.96-9.15); SEG NEUTROPHILS PERCENT MAN 71 % (41-73); TOTAL CELLS COUNTED 100
--- NOTE | 2022-04-28 14:57 | NUR ---
SHIFT SUMMARY NO ACUTE CHANGES THIS SHIFT. PATIENT ALERT & ORIENTED X2-3 THROUGHOUT DAY. MEDICATED WITH TYLENOL PER EMAR. CHANGED DRESSING TO R HIP. PATIENT ATTEMPTED TO WORK WITH OT BUT REMAINS WEAK AND REFUSES TO BE TRANSFERRED TO CHAIR. ATTENDS IN PLACE DUE TO INCONTINENCE, DRY AT THIS TIME. WILL REPORT TO ONCOMING RN.
--- NOTE | 2022-04-29 05:22 | NUR ---
SHIFT SUMMARY NO ACUTE CHANGES TO REPORT THIS SHIFT, PT HAS RESTED MOST OF THE NIGHT. PT STILL GETS EXTREMELY WINDED AND SOB WITH MINIMAL ACTIVITY. PT HAS REQUIRED BREATHING TREATMENTS AFTER ROLLING IN BED FOR ATTEND CHANGES. PT STILL PAINFUL WITH MOVEMENT. 2PA FOR TURNS AND CHANGES. VITALS STABLE. PT FORGETFUL BUT PLESANT WITH CARE. BED IN LOWEST POSITION, CALL LIGHT WITHIN REACH.
[2022-04-29 05:43] LABS: Albumin, Blood 2.5 g/dL (3.4-5.0); Anion Gap 7 mmol/L (6-16); Blood Urea Nitrogen 21 mg/dL (8-24); Bun/Creatinine Ratio 26.8 (12.0-20.0); CO2, Blood 30 mmol/L (21-32); Calcium, Blood 8.4 mg/dL (8.5-10.1); Chloride, Blood 103 mmol/L (98-108); Creatinine, Blood 0.78 mg/dL (0.40-1.00); Glomerular Filtration Rate 78 (60-); Glucose, Blood 116 mg/dL (70-99); Phosphorus, Blood 3.4 mg/dL (2.5-4.9); Potassium, Blood 4.5 mmol/L (3.5-5.5); Sodium, Blood 140 mmol/L (136-145)
[2022-04-29 12:29] LABS: SARS-Cov-2 (COVID-19) PCR, MMC NEGATIVE (NEGATIVE)
--- NOTE | 2022-04-29 13:57 | NUR ---
DISCHARGE NOTE: THIS NURSE CALLED AND GAVE REPORT TO [facility] NURSE TARAH. TARAH RN REPORTED HAVING NO OTHER QUESTIONS AFTER REPORT. PATIENT HAS A HX OF DEMENTIA BUT WHO WAS AT BEDSIDE REPORTED THAT SHE IS AT HER BASELINE. PATIENT WEARS 3L NC OF OXYGEN AT BASELINE AND IS BEING DISCHARGED TO [facility] ON 3L OXYGEN NC WITH >90% OXYGEN SATS. RIGHT HIP HAS TWO AQUACEL DRESSINGS THAT ARE C/D/I. PATIENT DENIES NUMBNESS AND TINGLING. CAN MOVE FINGERS AND TOES WHEN ASKED AND FOLLOWS DIRECTIONS. PAIN IS MANAGED WITH PO ROXANAL. PATIENT IS INCONTINENT/CONTINENT BUT HAS NEW ATTENDS IN PLACE. PATIENT WILL SOMETIMES ASK FOR BEDPAN BUT MAINLY IS INCONTINENT. PATIENT IS PASSING GAS AND HAD A SMEAR OF A BM THIS MORNING WELL TOLERATES PO INTAKE. TRANSPORT ARRIVED AT 1320 AND WAS TRANSFERRED FROM BED TO TRANSPORTORS WHEELCHAIR WITH A LIFT. PATIENT TOLERATED IT WELL. GATHERED PERSONAL ITEMS IN THE ROOM. IS BEING TRANSPORTED WITH PATIENT TO [facility].
== END 2022-04-29 14:00 | DRG 481 ==
LOC: ER 20:06 → SURS 23:51
PROVIDERS: Internal Medicine; Orthopaedic Surgery; Physician Assistant; ADMIT Internal Medicine
PROC: 0QS636Z Reposition Right Upper Femur with Intramedullary Internal Fixation Device, Percutaneous Approach (ICD-10-PCS; principal; 2022-04-24 12:30)
DX: S72.141A Displaced intertrochanteric fracture of right femur, initial encounter for closed fracture (principal); I48.20 Chronic atrial fibrillation, unspecified; J96.11 Chronic respiratory failure with hypoxia; J96.12 Chronic respiratory failure with hypercapnia; Z20.822 Contact with and (suspected) exposure to COVID-19; I25.10 Atherosclerotic heart disease of native coronary artery without angina pectoris; Z66 Do not resuscitate; J44.9 Chronic obstructive pulmonary disease, unspecified; F41.9 Anxiety disorder, unspecified; F32.A Depression, unspecified; K21.9 Gastro-esophageal reflux disease without esophagitis; E78.00 Pure hypercholesterolemia, unspecified; F01.50 Vascular dementia, unspecified severity, without behavioral disturbance, psychotic disturbance, mood disturbance, and anxiety; M19.90 Unspecified osteoarthritis, unspecified site; Z96.642 Presence of left artificial hip joint; Z95.1 Presence of aortocoronary bypass graft; Z99.81 Dependence on supplemental oxygen; Z79.52 Long term (current) use of systemic steroids; Z90.710 Acquired absence of both cervix and uterus; Z90.49 Acquired absence of other specified parts of digestive tract; Z87.891 Personal history of nicotine dependence; Z98.890 Other specified postprocedural states; Z90.89 Acquired absence of other organs; Z79.899 Other long term (current) drug therapy; W18.39XA Other fall on same level, initial encounter; Y92.129 Unspecified place in nursing home as the place of occurrence of the external cause
CPT/HCPCS: 0241U; 36415; 36600; 71045; 73502; 80048; 80053; 80069; 82803; 82947; 84145; 85025; 85027; 93005; 93010; 94640; 94664; 94760; 94762; 96374; 96375; 97110; 97162; 97166; 97530; 98960; 99285-25; A9270; C1713; C1769; J0690; J1100; J1650; J2270; J2405; J2704; J2710; J3010; J7120; U0004

== ENCOUNTER 2022-05-09 19:20 | Emergency (ER) | payer MEDICARE ==
[~2022-05-09] VITALS: Ht 170.2 cm; Wt 68.0 kg
[~2022-05-09 19:20] MED LIST changes: +CODACE30 PO; +HALO5 PO; +HYOS.125 PO; +Kenalog60 ML; +LORA1 PO; +MAGNESIUM OXID500 MG PO; +MONT10T PO; +MORP20L
[2022-05-09] MEDS ORDERED: Percocet 5-3251 EACH PO (22:31)
== END 2022-05-10 00:19 | disposition home or self-care (01) ==
LOC: ER 19:20
DX: M25.551 Pain in right hip (principal); W18.39XA Other fall on same level, initial encounter; J44.9 Chronic obstructive pulmonary disease, unspecified; F03.90 Unspecified dementia, unspecified severity, without behavioral disturbance, psychotic disturbance, mood disturbance, and anxiety; F17.210 Nicotine dependence, cigarettes, uncomplicated; Z79.899 Other long term (current) drug therapy; Z98.890 Other specified postprocedural states
CPT/HCPCS: 73502; 73552; A9270; J1170; J2270; J7030